=== PATIENT | male | born 1935 | race American Indian/Alaskan Native ===

== ENCOUNTER 2016-12-07 10:25 | Outpatient (CLI) | payer MEDICARE ==
--- NOTE | 2016-12-09 15:55 | Vascular Lab Report ---
LOWER EXTREMITY ARTERIAL DUPLEX: REASON FOR EXAM: Peripheral arterial disease. COMMENTS ON THE RIGHT: Monophasic waveforms are seen proximally. Monophasic waveforms are seen distally. There is a significant increase in velocities in the mid superficial femoral artery compatible with at least a 50% narrowing or greater. Multifocal moderate plaques are noted. Findings are consistent with abnormal perfusion with monophasic flow through the entire right lower extremity. Findings are compatible with compromised ability to heal distal wounds. COMMENTS ON THE LEFT: Monophasic waveforms are seen proximally in the external iliac artery, and then triphasic waveforms are seen in the common femoral artery with biphasic waveforms in the proximal superficial femoral artery. Monophasic waveforms are seen in the mid superficial femoral artery and below. Monophasic waveforms are seen distally. There is a significant decline in velocities from the proximal superficial femoral artery to the mid superficial femoral artery suggestive of a significant narrowing. Multifocal moderate plaques are noted. Findings are consistent with abnormal perfusion. Findings are compatible with compromised ability to heal distal wounds. IMPRESSION: RIGHT: Waveforms compatible with stenotic/occlusive aortoiliac disease and at least right stenotic/occlusive superficial femoral artery arterial disease. LEFT:Waveforms compatible with stenotic/occlusive aortoiliac disease and at least left stenotic/occlusive superficial femoral artery disease.
== END 2016-12-07 10:26 | disposition home or self-care (01) ==
LOC: VAS 10:25
PROVIDERS: ATTEND Internal Medicine
DX: I73.9 Peripheral vascular disease, unspecified (principal)
CPT/HCPCS: 93925

== ENCOUNTER 2017-11-18 14:10 | Inpatient (IN) | payer MEDICARE ==
[2017-11-18 15:45] LABS: Basophils # (Auto) 0.1 K/mm3 (0.0-0.1); Eosinophils # (Auto) 0.1 K/mm3 (0.0-0.4); Eosinophils % (Auto) 1.9 % (0.0-4.3); Hematocrit 32.4 % (35.5-45.6); Hemoglobin 10.5 gm/dl (11.8-15.2); Lymphocytes # (Auto) 1.5 K/mm3 (1.2-5.4); Lymphocytes % (Auto) 22.2 % (13.4-35.0); Mean Corpuscular HGB Conc 33 % (32-34); Mean Corpuscular Hemoglobin 29 pg (28-32); Mean Corpuscular Volume 89 fl (84-94); Monocytes # (Auto) 0.4 K/mm3 (0.0-0.8); Monocytes % (Auto) 5.9 % (0.0-7.3); Platelet Count 250 K/mm3 (140-440); Red Blood Count 3.66 M/mm3 (3.65-5.03); Red Cell Distribution Width 17.3 % (13.2-15.2)
[2017-11-18 15:59] LABS: Alanine Aminotransferase 7 units/L (7-56); Albumin 3.1 g/dL (3.9-5); BUN/Creatinine Ratio 15; Blood Urea Nitrogen 18 mg/dL (9-20); Calcium 8.4 mg/dL (8.4-10.2); Hemolysis Index 10
--- NOTE | 2017-11-18 15:59 | Emergency Department Report ---
ED Altered Mental Status HPI - General Chief Complaint: Altered Mental Status Stated Complaint: CHEST PAIN Time Seen by Provider: 11/18/17 15:51 Source: EMS Mode of arrival: Ambulatory Limitations: No Limitations - History of Present Illness MD Complaint: altered mental status -: This morning Severity: moderate Consistency of Symptoms: waxing and waning Context: unknown Associated Symptoms: denies other symptoms - Related Data Home Medications Medication Instructions Recorded Confirmed Last Taken Diltiazem HCl [Diltiazem ER] 120 mg PO DAILY 11/18/17 11/18/17 Unknown Tamsulosin [Flomax] 0.4 mg PO QDAY 11/18/17 11/18/17 Unknown Allergies Allergy/AdvReac Type Severity Reaction Status Date / Time No Known Allergies Allergy Unverified 12/07/16 10:26 ED Review of Systems ROS: Stated complaint: CHEST PAIN Other details as noted in HPI Comment: All other systems reviewed and negative Constitutional: weakness. denies: chills, diaphoresis, fever Eyes: denies: eye pain, vision change ENT: denies: ear pain, hearing loss Respiratory: denies: cough, shortness of breath Cardiovascular: denies: chest pain, palpitations Endocrine: no symptoms reported Gastrointestinal: denies: abdominal pain, nausea, vomiting, diarrhea Genitourinary: denies: urgency, dysuria, frequency, hematuria Musculoskeletal: denies: back pain, joint swelling Skin: denies: rash, change in color Neurological: weakness, numbness. denies: headache Psychiatric: denies: auditory hallucinations Hematological/Lymphatic: denies: easy bleeding, easy bruising ED Past Medical Hx - Past Medical History Previous Medical History?: Yes Hx Hypertension: Yes Hx CVA: Yes Hx Heart Attack/AMI: No Hx Congestive Heart Failure: No Hx Diabetes: No Hx Deep Vein Thrombosis: No Hx Pulmonary Embolism: No Hx GERD: No Hx Liver Disease: No Hx Renal Disease: No Hx of Cancer: No Hx Sickle Cell Disease: No Hx Arthritis: No Hx Headaches / Migraines: No Hx Seizures: No Hx Kidney Stones: No Hx Psychiatric Treatment: No Hx Asthma: No Hx COPD: No Hx Tuberculosis: No Hx Dementia: No Hx HIV: No - Surgical History Past Surgical History?: No Hx Coronary Stent: No Hx Open Heart Surgery: No Hx Pacemaker: No Hx Internal Defibrillator: No Hx Cholecystectomy: No Hx Appendectomy: No Hx Breast Surgery: No - Social History Smoking Status: Current Every Day Smoker Substance Use Type: None - Medications Home Medications: Home Medications Medication Instructions Recorded Confirmed Last Taken Type Diltiazem HCl [Diltiazem ER] 120 mg PO DAILY 11/18/17 11/18/17 Unknown History Tamsulosin [Flomax] 0.4 mg PO QDAY 11/18/17 11/18/17 Unknown History ED Physical Exam - General Limitations: No Limitations General appearance: alert, in no apparent distress - Head Head exam: Present: atraumatic, normocephalic, normal inspection - Eye Eye exam: Present: normal appearance, PERRL, EOMI Pupils: Absent: normal accommodation, unequal - ENT ENT exam: Present: normal exam, normal orophraynx, mucous membranes moist - Neck Neck exam: Present: normal inspection, full ROM - Respiratory Respiratory exam: Present: normal lung sounds bilaterally. Absent: respiratory distress, wheezes, rales, rhonchi - Cardiovascular Cardiovascular Exam: Present: bradycardia, normal heart sounds - GI/Abdominal GI/Abdominal exam: Present: soft, normal bowel sounds. Absent: tenderness, guarding, rebound - Extremities Exam Extremities exam: Present: normal inspection, full ROM, normal capillary refill - Back Exam Back exam: Present: normal inspection, full ROM - Neurological Exam Neurological exam: Present: alert, oriented X3, CN II-XII intact - Psychiatric Psychiatric exam: Present: normal affect, anxious, flat affect - Skin Skin exam: Present: warm, dry, intact, normal color - Assessment Assessment Interval: Baseline - Level of Consciousness 1a. Level of Consciousness: alert - LOC Questions 1b. LOC Questions: answers correctly - LOC Command 1c. LOC Commands: performs tasks correctly - Best Gaze 2. Best Gaze: normal - Visual 3. Visual: no visual loss - Facial Palsy 4. Facial Palsy: normal symmetrical movement - Motor Arm 5b. Motor Arm Right: no drift 5a. Motor Arm Left: no drift - Motor Leg 6a. Motor Leg Left: no drift 6b. Motor Leg Right: no drift - Limb Ataxia 7. Limb Ataxia: absent - Sensory 8. Sensory: normal - Best Language 9. Best Language: no aphasia - Dysarthria 10. Dysarthria: normal - Extinction and Inattention 11. Extinction/Inattention: no abnormality - Scoring Total Score: 0 Stroke Severity: No Stroke Symptoms ED Course Vital Signs 11/18/17 11/18/17 11/18/17 15:14 15:23 15:45 Temperature 97.8 F Pulse Rate 54 L 42 L 44 L Respiratory 18 16 16 Rate Blood Pressure 159/39 Blood Pressure 159/39 142/50 152/50 [Right] O2 Sat by Pulse 100 97 96 Oximetry 11/18/17 11/18/17 17:30 19:31 Temperature 98.3 F Pulse Rate 54 L 57 L Respiratory 16 18 Rate Blood Pressure Blood Pressure 158/52 158/52 [Right] O2 Sat by Pulse 96 99 Oximetry - Reevaluation(s) Reevaluation #1: 11/18/17 20:07 I discussed the patient care with the hospitalist on-call Dr Magallanes. He will admit patient to the hospital for further evaluation and management. - Lab Data Result diagrams: 11/18/17 16:11 11/18/17 15:30 Lab Results 11/18/17 11/18/17 11/18/17 Range/Units 15:30 15:30 15:30 WBC 6.5 (4.5-11.0) K/mm3 RBC 3.66 (3.65-5.03) M/mm3 Hgb 10.5 L (11.8-15.2) gm/dl Hct 32.4 L (35.5-45.6) % MCV 89 (84-94) fl MCH 29 (28-32) pg MCHC 33 (32-34) % RDW 17.3 H (13.2-15.2) % Plt Count 250 (140-440) K/mm3 Lymph % (Auto) 22.2 (13.4-35.0) % [place] % (Auto) 5.9 (0.0-7.3) % Eos % (Auto) 1.9 (0.0-4.3) % Baso % (Auto) 1.0 (0.0-1.8) % Lymph # 1.5 (1.2-5.4) K/mm3 [place] # 0.4 (0.0-0.8) K/mm3 Eos # 0.1 (0.0-0.4) K/mm3 Baso # 0.1 (0.0-0.1) K/mm3 Seg Neutrophils % 69.0 (40.0-70.0) % Seg Neutrophils # 4.5 (1.8-7.7) K/mm3 PT (12.2-14.9) Sec. INR (0.87-1.13) APTT (24.2-36.6) Sec. Sodium 136 L (137-145) mmol/L Potassium 4.3 (3.6-5.0) mmol/L Chloride 101.6 (98-107) mmol/L Carbon Dioxide 21 L (22-30) mmol/L Anion Gap 18 mmol/L BUN 18 (9-20) mg/dL Creatinine 1.2 (0.8-1.5) mg/dL Estimated GFR > 60 ml/min BUN/Creatinine Ratio 15 % Glucose 79 (75-100) mg/dL Lactic Acid (0.7-2.0) mmol/L Calcium 8.4 (8.4-10.2) mg/dL Total Bilirubin 0.20 (0.1-1.2) mg/dL AST 18 (5-40) units/L ALT 7 (7-56) units/L Alkaline Phosphatase 77 (35-129) units/L Ammonia (25-60) umol/L Total Creatine Kinase (55-170) units/L Troponin T (0.00-0.029) ng/mL Total Protein 7.0 (6.3-8.2) g/dL Albumin 3.1 L (3.9-5) g/dL Albumin/Globulin Ratio 0.8 % TSH 8.340 H (0.270-4.200) mlU/mL Urine Color (Yellow) Urine Turbidity (Clear) Urine pH (5.0-7.0) Ur Specific [place] (1.003-1.030) Urine Protein (Negative) mg/dL Urine Glucose (UA) (Negative) mg/dL Urine Ketones (Negative) mg/dL Urine Blood (Negative) Urine Nitrite (Negative) Urine Bilirubin (Negative) Urine Urobilinogen (<2.0) mg/dL Ur Leukocyte Esterase (Negative) Urine WBC (Auto) (0.0-6.0) /HPF Urine RBC (Auto) (0.0-6.0) /HPF Hyaline Casts /LPF Urine Mucus /HPF Urine Opiates Screen Urine Methadone Screen Ur Barbiturates Screen Ur Phencyclidine Scrn Ur Amphetamines Screen U Benzodiazepines Scrn Urine Cocaine Screen U Marijuana (THC) Screen Drugs of Abuse Note Plasma/Serum Alcohol (0-0.07) % 11/18/17 11/18/17 11/18/17 Range/Units 15:30 16:11 16:11 WBC 7.6 (4.5-11.0) K/mm3 RBC 3.48 L (3.65-5.03) M/mm3 Hgb 10.0 L (11.8-15.2) gm/dl Hct 30.3 L (35.5-45.6) % MCV 87 (84-94) fl MCH 29 (28-32) pg MCHC 33 (32-34) % RDW 16.7 H (13.2-15.2) % Plt Count 241 (140-440) K/mm3 Lymph % (Auto) 21.4 (13.4-35.0) % [place] % (Auto) 6.8 (0.0-7.3) % Eos % (Auto) 1.6 (0.0-4.3) % Baso % (Auto) 0.5 (0.0-1.8) % Lymph # 1.6 (1.2-5.4) K/mm3 [place] # 0.5 (0.0-0.8) K/mm3 Eos # 0.1 (0.0-0.4) K/mm3 Baso # 0.0 (0.0-0.1) K/mm3 Seg Neutrophils % 69.7 (40.0-70.0) % Seg Neutrophils # 5.3 (1.8-7.7) K/mm3 PT 12.7 (12.2-14.9) Sec. INR 0.91 (0.87-1.13) APTT 35.9 (24.2-36.6) Sec. Sodium (137-145) mmol/L Potassium (3.6-5.0) mmol/L Chloride (98-107) mmol/L Carbon Dioxide (22-30) mmol/L Anion Gap mmol/L BUN (9-20) mg/dL Creatinine (0.8-1.5) mg/dL Estimated GFR ml/min BUN/Creatinine Ratio % Glucose (75-100) mg/dL Lactic Acid (0.7-2.0) mmol/L Calcium (8.4-10.2) mg/dL Total Bilirubin (0.1-1.2) mg/dL AST (5-40) units/L ALT (7-56) units/L Alkaline Phosphatase (35-129) units/L Ammonia (25-60) umol/L Total Creatine Kinase (55-170) units/L Troponin T (0.00-0.029) ng/mL Total Protein (6.3-8.2) g/dL Albumin (3.9-5) g/dL Albumin/Globulin Ratio % TSH (0.270-4.200) mlU/mL Urine Color (Yellow) Urine Turbidity (Clear) Urine pH (5.0-7.0) Ur Specific [place] (1.003-1.030) Urine Protein (Negative) mg/dL Urine Glucose (UA) (Negative) mg/dL Urine Ketones (Negative) mg/dL Urine Blood (Negative) Urine Nitrite (Negative) Urine Bilirubin (Negative) Urine Urobilinogen (<2.0) mg/dL Ur Leukocyte Esterase (Negative) Urine WBC (Auto) (0.0-6.0) /HPF Urine RBC (Auto) (0.0-6.0) /HPF Hyaline Casts /LPF Urine Mucus /HPF Urine Opiates Screen Urine Methadone Screen Ur Barbiturates Screen Ur Phencyclidine Scrn Ur Amphetamines Screen U Benzodiazepines Scrn Urine Cocaine Screen U Marijuana (THC) Screen Drugs of Abuse Note Plasma/Serum Alcohol < 0.01 (0-0.07) % 11/18/17 11/18/17 11/18/17 Range/Units 16:11 16:11 16:11 WBC (4.5-11.0) K/mm3 RBC (3.65-5.03) M/mm3 Hgb (11.8-15.2) gm/dl Hct (35.5-45.6) % MCV (84-94) fl MCH (28-32) pg MCHC (32-34) % RDW (13.2-15.2) % Plt Count (140-440) K/mm3 Lymph % (Auto) (13.4-35.0) % [place] % (Auto) (0.0-7.3) % Eos % (Auto) (0.0-4.3) % Baso % (Auto) (0.0-1.8) % Lymph # (1.2-5.4) K/mm3 [place] # (0.0-0.8) K/mm3 Eos # (0.0-0.4) K/mm3 Baso # (0.0-0.1) K/mm3 Seg Neutrophils % (40.0-70.0) % Seg Neutrophils # (1.8-7.7) K/mm3 PT (12.2-14.9) Sec. INR (0.87-1.13) APTT (24.2-36.6) Sec. Sodium (137-145) mmol/L Potassium (3.6-5.0) mmol/L Chloride (98-107) mmol/L Carbon Dioxide (22-30) mmol/L Anion Gap mmol/L BUN (9-20) mg/dL Creatinine (0.8-1.5) mg/dL Estimated GFR ml/min BUN/Creatinine Ratio % Glucose (75-100) mg/dL Lactic Acid 1.60 (0.7-2.0) mmol/L Calcium (8.4-10.2) mg/dL Total Bilirubin (0.1-1.2) mg/dL AST (5-40) units/L ALT (7-56) units/L Alkaline Phosphatase (35-129) units/L Ammonia 38.0 (25-60) umol/L Total Creatine Kinase (55-170) units/L Troponin T (0.00-0.029) ng/mL Total Protein (6.3-8.2) g/dL Albumin (3.9-5) g/dL Albumin/Globulin Ratio % TSH (0.270-4.200) mlU/mL Urine Color (Yellow) Urine Turbidity (Clear) Urine pH (5.0-7.0) Ur Specific [place] (1.003-1.030) Urine Protein (Negative) mg/dL Urine Glucose (UA) (Negative) mg/dL Urine Ketones (Negative) mg/dL Urine Blood (Negative) Urine Nitrite (Negative) Urine Bilirubin (Negative) Urine Urobilinogen (<2.0) mg/dL Ur Leukocyte Esterase (Negative) Urine WBC (Auto) (0.0-6.0) /HPF Urine RBC (Auto) (0.0-6.0) /HPF Hyaline Casts /LPF Urine Mucus /HPF Urine Opiates Screen Urine Methadone Screen Ur Barbiturates Screen Ur Phencyclidine Scrn Ur Amphetamines Screen U Benzodiazepines Scrn Urine Cocaine Screen U Marijuana (THC) Screen Drugs of Abuse Note Plasma/Serum Alcohol < 0.01 (0-0.07) % 11/18/17 11/18/17 11/18/17 Range/Units 16:11 Unknown Unknown WBC (4.5-11.0) K/mm3 RBC (3.65-5.03) M/mm3 Hgb (11.8-15.2) gm/dl Hct (35.5-45.6) % MCV (84-94) fl MCH (28-32) pg MCHC (32-34) % RDW (13.2-15.2) % Plt Count (140-440) K/mm3 Lymph % (Auto) (13.4-35.0) % [place] % (Auto) (0.0-7.3) % Eos % (Auto) (0.0-4.3) % Baso % (Auto) (0.0-1.8) % Lymph # (1.2-5.4) K/mm3 [place] # (0.0-0.8) K/mm3 Eos # (0.0-0.4) K/mm3 Baso # (0.0-0.1) K/mm3 Seg Neutrophils % (40.0-70.0) % Seg Neutrophils # (1.8-7.7) K/mm3 PT (12.2-14.9) Sec. INR (0.87-1.13) APTT (24.2-36.6) Sec. Sodium (137-145) mmol/L Potassium (3.6-5.0) mmol/L Chloride (98-107) mmol/L Carbon Dioxide (22-30) mmol/L Anion Gap mmol/L BUN (9-20) mg/dL Creatinine (0.8-1.5) mg/dL Estimated GFR ml/min BUN/Creatinine Ratio % Glucose (75-100) mg/dL Lactic Acid (0.7-2.0) mmol/L Calcium (8.4-10.2) mg/dL Total Bilirubin (0.1-1.2) mg/dL AST (5-40) units/L ALT (7-56) units/L Alkaline Phosphatase (35-129) units/L Ammonia (25-60) umol/L Total Creatine Kinase 51 L (55-170) units/L Troponin T < 0.010 (0.00-0.029) ng/mL Total Protein (6.3-8.2) g/dL Albumin (3.9-5) g/dL Albumin/Globulin Ratio % TSH (0.270-4.200) mlU/mL Urine Color Yellow (Yellow) Urine Turbidity Clear (Clear) Urine pH 5.0 (5.0-7.0) Ur Specific [place] 1.015 (1.003-1.030) Urine Protein 30 mg/dl (Negative) mg/dL Urine Glucose (UA) Neg (Negative) mg/dL Urine Ketones Neg (Negative) mg/dL Urine Blood Sm (Negative) Urine Nitrite Neg (Negative) Urine Bilirubin Neg (Negative) Urine Urobilinogen < 2.0 (<2.0) mg/dL Ur Leukocyte Esterase Neg (Negative) Urine WBC (Auto) 1.0 (0.0-6.0) /HPF Urine RBC (Auto) 4.0 (0.0-6.0) /HPF Hyaline Casts 1 /LPF Urine Mucus Few /HPF Urine Opiates Screen Presumptive negative Urine Methadone Screen Presumptive negative Ur Barbiturates Screen Presumptive negative Ur Phencyclidine Scrn Presumptive negative Ur Amphetamines Screen Presumptive negative U Benzodiazepines Scrn Presumptive negative Urine Cocaine Screen Presumptive negative U Marijuana (THC) Screen Presumptive negative Drugs of Abuse Note Disclamer Plasma/Serum Alcohol (0-0.07) % - EKG Data -: EKG Interpreted by Me Rate: bradycardia When compared to previous EKG there are: previous EKG unavailable Interpretation: nonspecific ST-T wave aniket, other (RBBB.) - Radiology Data Radiology results: report reviewed, image reviewed - Medical Decision Making TIA Critical care attestation.: If time is entered above; I have spent that time in minutes in the direct care of this critically ill patient, excluding procedure time. ED Disposition Clinical Impression: Hypothyroidism Qualifiers: Hypothyroidism type: unspecified Qualified Code(s): E03.9 - Hypothyroidism, unspecified TIA (transient ischemic attack) Qualifiers: Transient cerebral ischemia type: unspecified Qualified Code(s): G45.9 - Transient cerebral ischemic attack, unspecified Disposition: DC-09 OP ADMIT IP TO THIS HOSP Is pt being admited?: Yes Does the pt Need Aspirin: Yes Condition: Stable Referrals: ZOLTAN BRAUN MD [Primary Care Provider] - 3-5 Days
[2017-11-18 16:17] LABS: Bilirubin,Urine NEG (Negative); Blood,Urine SM (Negative); Color,Urine Yellow (Yellow); Hyaline Casts,Urine 1 /LPF; Mucus,Urine FEW /HPF; Urobilinogen,Urine < 2.0 mg/dL (<2.0)
[2017-11-18 16:23] LABS: Amphetamine Screen,Urine PRESUMPTIVE NEGATIVE; Benzodiazepines Screen,Urine PRESUMPTIVE NEGATIVE; Cannabinoid Screen,Urine PRESUMPTIVE NEGATIVE; Cocaine Screen,Urine PRESUMPTIVE NEGATIVE; Methadone Screen,Urine PRESUMPTIVE NEGATIVE; Opiate Screen,Urine PRESUMPTIVE NEGATIVE
[2017-11-18 16:31] LABS: Basophils % (Auto) 0.5 % (0.0-1.8); Eosinophils # (Auto) 0.1 K/mm3 (0.0-0.4); Eosinophils % (Auto) 1.6 % (0.0-4.3); Hematocrit 30.3 % (35.5-45.6); Lymphocytes # (Auto) 1.6 K/mm3 (1.2-5.4); Lymphocytes % (Auto) 21.4 % (13.4-35.0); Mean Corpuscular HGB Conc 33 % (32-34); Mean Corpuscular Hemoglobin 29 pg (28-32); Mean Corpuscular Volume 87 fl (84-94); Monocytes # (Auto) 0.5 K/mm3 (0.0-0.8); Monocytes % (Auto) 6.8 % (0.0-7.3); Platelet Count 241 K/mm3 (140-440); Red Blood Count 3.48 M/mm3 (3.65-5.03); Red Cell Distribution Width 16.7 % (13.2-15.2)
[2017-11-18 16:42] LABS: INR 0.91 (0.87-1.13)
[2017-11-18 16:43] LABS: Partial Thromboplastin Time 35.9 Sec. (24.2-36.6)
--- NOTE | 2017-11-18 17:53 | XRay Report ---
FINAL REPORT PROCEDURE: XR CHEST 1V AP TECHNIQUE: A portable AP chest radiograph was obtained at 11/18/2017 20:01 ([facility]) . CPT 60447 HISTORY: Altered mental status. COMPARISON: No prior studies are available for comparison. FINDINGS: Heart: Moderate cardiomegaly. Mediastinum/Vessels: Aortic tortuosity and calcification. Lungs/Pleural space: Hyperinflation. Elevation of the left diaphragm. Bony thorax: Mild osteopenia. Mild degenerative changes of the spine. Life support devices: None. IMPRESSION: Moderate cardiomegaly. Aortic calcification and tortuosity. Hyperinflation suggests obstructive physiology.
--- NOTE | 2017-11-18 19:08 | Cat Scan Report ---
FINAL REPORT PROCEDURE: CT HEAD/BRAIN WO CON TECHNIQUE: Computerized tomography of the head was performed without contrast material. DLP 805.42 mGy-cm. HISTORY: Altered mental status. COMPARISON: No prior studies are available for comparison. FINDINGS: Skull and scalp: Normal. Paranasal sinuses: Normal. Ventricles and subarachnoid spaces: Mild diffuse ventricular prominence. Cerebrum: No evidence of hemorrhage, acute infarction or mass. Atrophy. Moderate periventricular white matter low attenuation. More focal areas of low attenuation in the bilateral basal ganglia and the thalami, right greater than left. Area of low attenuation in the right thalamus measures 6.7 mm. Cerebellum and brainstem: No evidence of hemorrhage, acute infarction or mass. Vasculature: Atherosclerosis of the cavernous ICAs. Comments: [id number] C4-5 and moderate C5-6 disc space narrowing and osteophytes on stone unloader image. IMPRESSION: Atrophy. Ventricular prominence likely in proportion to the degree of atrophy. No CT evidence of acute intracranial hemorrhage. Moderate periventricular white matter low attenuation, likely chronic small vessel ischemic change. More focal areas of low attenuation in the basal ganglia and thalami likely lacunes. Consider MRI of the brain for further characterization if there is continued clinical concern for superimposed acute process and if patient has no contraindication to MRI.
[2017-11-18] MEDS ORDERED: DULCOLAX PR PRN (22:15)
[2017-11-18] MEDS ORDERED: PROVENTIL IH PRN (22:15)
[2017-11-18] MEDS ORDERED: ZOFRAN IV PRN (22:15)
[2017-11-18] MEDS ORDERED: SODIUM CHLORIDE FLUSH SYRINGE 10 ML IV PRN (22:15)
[2017-11-18] MEDS ORDERED: MILK OF MAGNESIA PO PRN (22:15)
[2017-11-18] MEDS ORDERED: APRESOLINE IV PRN (22:15)
[2017-11-18] MEDS ORDERED: TYLENOL PO PRN (22:15)
--- NOTE | 2017-11-18 22:18 | History and Physical Report ---
History of Present Illness Date of examination: 11/18/17 History of present illness: 82-year-old man with a history of hypertension stated that yesterday he lost his peripheral vision bilateral for 1 hour. Today he was trying to get out of the car and his legs were so weak he had difficulty walking. Triage sheet stating that the patient had a syncopal episode, the patient denies syncope Review of systems Constitutional: no weight loss, chills Ears, eyes, nose, mouth and throat: no nasal congestion, no nasal discharge, no sinus pressure, no vision change, no red eye. Neck: No neck pain or rigidity. Cardiovascular: no chest pain, palpitations Respiratory: No cough, shortness of breath Gastrointestinal: no abdominal pain, hematochezia Genitourinary : no dysuria, frequency , no hematuria Musculoskeletal: no joint swelling or muscle ache Integumentary: no rash, no pruritis Neurological: no parathesias, no numbness, no focal weakness Endocrine: no cold or heat intolerance, no polyuria or polydipsia Hematologic/Lymphatic: no easy bruising, no easy bleeding, no gland swelling Allergic/Immunologic: no urticaria, no angioedema. PAST MEDICAL HISTORY: Hypertension PAST SURGICAL HISTORY: None SOCIAL HISTORY: Smoke 1 pack a day, no alcohol, drugs FAMILY HISTORY: Hypertension Medications and Allergies Allergies Allergy/AdvReac Type Severity Reaction Status Date / Time No Known Allergies Allergy Verified 11/18/17 22:44 Home Medications Medication Instructions Recorded Confirmed Last Taken Type Diltiazem HCl [Diltiazem ER] 120 mg PO DAILY 11/18/17 11/18/17 Unknown History Tamsulosin [Flomax] 0.4 mg PO QDAY 11/18/17 11/18/17 Unknown History Exam - Physical Exam Narrative exam: Gen. appearance: Patient lying in bed, no apparent distress HEENT: Normocephalic, atraumatic, pupils equally round and reactive to light, extraocular movement intact, and no sclericterus,. No JVD or thyromegaly or nodule,neck supple, no carotid bruit ,mucous membranes moist, no exudate or erythema Heart: S1, S2, regular rate and rhythm Lungs: Clear to auscultation bilaterally, breathing comfortable Abdomen: Positive bowel sounds, nontender, nondistended, no organomegaly Extremity: No edema, cyanosis, clubbing Skin: No rash, nodules, warm, dry Neuro: Oriented 3, cranial nerves II-12 intact, speech is fluent, motor and sensory intact - Constitutional Vitals: Temp Pulse Resp BP Pulse Ox 98.3 F 57 L 18 158/52 99 11/18/17 19:31 11/18/17 19:31 11/18/17 19:31 11/18/17 19:31 11/18/17 19:31 Results - Labs CBC & Chem 7: 11/18/17 16:11 11/18/17 15:30 Labs: Abnormal lab results 11/18/17 11/18/17 11/18/17 Range/Units 15:30 15:30 15:30 RBC (3.65-5.03) M/mm3 Hgb 10.5 L (11.8-15.2) gm/dl Hct 32.4 L (35.5-45.6) % RDW 17.3 H (13.2-15.2) % Sodium 136 L (137-145) mmol/L Carbon Dioxide 21 L (22-30) mmol/L Total Creatine Kinase (55-170) units/L Albumin 3.1 L (3.9-5) g/dL TSH 8.340 H (0.270-4.200) mlU/mL 11/18/17 11/18/17 Range/Units 16:11 16:11 RBC 3.48 L (3.65-5.03) M/mm3 Hgb 10.0 L (11.8-15.2) gm/dl Hct 30.3 L (35.5-45.6) % RDW 16.7 H (13.2-15.2) % Sodium (137-145) mmol/L Carbon Dioxide (22-30) mmol/L Total Creatine Kinase 51 L (55-170) units/L Albumin (3.9-5) g/dL TSH (0.270-4.200) mlU/mL - Imaging and Cardiology EKG: image reviewed Chest x-ray: image reviewed CT Scan - head: report reviewed Assessment and Plan Assessment TIA Hypertension Plan Admit to medicine Obtain MRI of the head, carotid Doppler, echo Start aspirin, statin will consult neurology Consult physical, occupational therapy Neurochecks, swallow screen DVT prophylaxis
[2017-11-18 23:29] LABS: Creatine Kinase MB 1.1 ng/mL (0.0-4.0)
[2017-11-19 06:22] LABS: Creatine Kinase MB 1.2 ng/mL (0.0-4.0)
[2017-11-19 07:13] LABS: Chol/HDL Ratio 2.56 %
--- NOTE | 2017-11-19 09:57 | Progress Note ---
Assessment and Plan Assessment and plan: 82-year-old male with past medical history significant for hypertension presented to the emergency department for the complaints of loss of vision on out before presentation. In the emergency department CT of head was done and is negative for acute intracranial bleeding Loss of peripheral vision/acute CVA - CT head was done no acute intracranial hemorrhage, MRI showed lacunar infarcs , bilateral carotid Doppler showed 50-79% stenosis and vascular surgery consulted - Aspirin, statin - PT/OT, neurology consult Hypertension - Uncontrolled - We'll resume home medications DVT prophylaxis - Lovenox History Interval history: Patient was seen and evaluated this morning, patient didn't have any weakness. Hospitalist Physical - Physical exam Narrative exam: Not in cardiopulmonary distress. The patient appeared well nourished and normally developed. Vital signs as documented. Head exam is unremarkable. No scleral icterus . Neck is without jugular venous distension, thyromegaly, or carotid bruits. Lungs are clear to auscultation. Cardiac exam reveals regular rate and Rhythm. First and second heart sounds normal. No murmurs, rubs or gallops. Abdominal exam reveals normal bowel sounds, no masses, no organomegaly and no aortic enlargement. Extremities are nonedematous and both femoral and pedal pulses are normal. 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 No focal weakness. - Constitutional Vitals: Temp Pulse Resp BP Pulse Ox 97.9 F 76 20 167/56 99 11/19/17 05:50 11/19/17 05:50 11/19/17 05:50 11/19/17 05:50 11/19/17 05:50 Results - Labs CBC & Chem 7: 11/18/17 16:11 11/18/17 15:30 Labs: Laboratory Last Values WBC 7.6 K/mm3 (4.5-11.0) 11/18/17 16:11 RBC 3.48 M/mm3 (3.65-5.03) L 11/18/17 16:11 Hgb 10.0 gm/dl (11.8-15.2) L 11/18/17 16:11 Hct 30.3 % (35.5-45.6) L 11/18/17 16:11 MCV 87 fl (84-94) 11/18/17 16:11 MCH 29 pg (28-32) 11/18/17 16:11 MCHC 33 % (32-34) 11/18/17 16:11 RDW 16.7 % (13.2-15.2) H 11/18/17 16:11 Plt Count 241 K/mm3 (140-440) 11/18/17 16:11 Lymph % (Auto) 21.4 % (13.4-35.0) 11/18/17 16:11 [place] % (Auto) 6.8 % (0.0-7.3) 11/18/17 16:11 Eos % (Auto) 1.6 % (0.0-4.3) 11/18/17 16:11 Baso % (Auto) 0.5 % (0.0-1.8) 11/18/17 16:11 Lymph # 1.6 K/mm3 (1.2-5.4) 11/18/17 16:11 [place] # 0.5 K/mm3 (0.0-0.8) 11/18/17 16:11 Eos # 0.1 K/mm3 (0.0-0.4) 11/18/17 16:11 Baso # 0.0 K/mm3 (0.0-0.1) 11/18/17 16:11 Seg Neutrophils % 69.7 % (40.0-70.0) 11/18/17 16:11 Seg Neutrophils # 5.3 K/mm3 (1.8-7.7) 11/18/17 16:11 PT 12.7 Sec. (12.2-14.9) 11/18/17 16:11 INR 0.91 (0.87-1.13) 11/18/17 16:11 APTT 35.9 Sec. (24.2-36.6) 11/18/17 16:11 D-Dimer 1087.96 ng/mlDDU (0-234) H 11/19/17 05:50 Sodium 136 mmol/L (137-145) L 11/18/17 15:30 Potassium 4.3 mmol/L (3.6-5.0) 11/18/17 15:30 Chloride 101.6 mmol/L (98-107) 11/18/17 15:30 Carbon Dioxide 21 mmol/L (22-30) L 11/18/17 15:30 Anion Gap 18 mmol/L 11/18/17 15:30 BUN 18 mg/dL (9-20) 11/18/17 15:30 Creatinine 1.2 mg/dL (0.8-1.5) 11/18/17 15:30 Estimated GFR > 60 ml/min 11/18/17 15:30 BUN/Creatinine Ratio 15 % 11/18/17 15:30 Glucose 79 mg/dL (75-100) 11/18/17 15:30 Lactic Acid 1.60 mmol/L (0.7-2.0) 11/18/17 16:11 Calcium 8.4 mg/dL (8.4-10.2) 11/18/17 15:30 Total Bilirubin 0.20 mg/dL (0.1-1.2) 11/18/17 15:30 AST 18 units/L (5-40) 11/18/17 15:30 ALT 7 units/L (7-56) 11/18/17 15:30 Alkaline Phosphatase 77 units/L (35-129) 11/18/17 15:30 Ammonia 38.0 umol/L (25-60) 11/18/17 16:11 Total Creatine Kinase 50 units/L (55-170) L 11/19/17 05:22 CK-MB (CK-2) 1.2 ng/mL (0.0-4.0) 11/19/17 05:22 CK-MB (CK-2) Rel Index 2.4 (0-4) 11/19/17 05:22 Troponin T < 0.010 ng/mL (0.00-0.029) 11/19/17 05:22 Total Protein 7.0 g/dL (6.3-8.2) 11/18/17 15:30 Albumin 3.1 g/dL (3.9-5) L 11/18/17 15:30 Albumin/Globulin Ratio 0.8 % 11/18/17 15:30 Triglycerides 67 mg/dL (2-149) 11/19/17 05:22 Cholesterol 131 mg/dL (50-199) 11/19/17 05:22 LDL Cholesterol Direct 73 mg/dL (50-130) 11/19/17 05:22 HDL Cholesterol 51 mg/dL (40-59) 11/19/17 05:22 Cholesterol/HDL Ratio 2.56 % 11/19/17 05:22 TSH 8.340 mlU/mL (0.270-4.200) H 11/18/17 15:30 Urine Color Yellow (Yellow) 11/18/17 Unknown Urine Turbidity Clear (Clear) 11/18/17 Unknown Urine pH 5.0 (5.0-7.0) 11/18/17 Unknown Ur Specific [place] 1.015 (1.003-1.030) 11/18/17 Unknown Urine Protein 30 mg/dl mg/dL (Negative) 11/18/17 Unknown Urine Glucose (UA) Neg mg/dL (Negative) 11/18/17 Unknown Urine Ketones Neg mg/dL (Negative) 11/18/17 Unknown Urine Blood Sm (Negative) 11/18/17 Unknown Urine Nitrite Neg (Negative) 11/18/17 Unknown Urine Bilirubin Neg (Negative) 11/18/17 Unknown Urine Urobilinogen < 2.0 mg/dL (<2.0) 11/18/17 Unknown Ur Leukocyte Esterase Neg (Negative) 11/18/17 Unknown Urine WBC (Auto) 1.0 /HPF (0.0-6.0) 11/18/17 Unknown Urine RBC (Auto) 4.0 /HPF (0.0-6.0) 11/18/17 Unknown Hyaline Casts 1 /LPF 11/18/17 Unknown Urine Mucus Few /HPF 11/18/17 Unknown Urine Opiates Screen Presumptive negative 11/18/17 Unknown Urine Methadone Screen Presumptive negative 11/18/17 Unknown Ur Barbiturates Screen Presumptive negative 11/18/17 Unknown Ur Phencyclidine Scrn Presumptive negative 11/18/17 Unknown Ur Amphetamines Screen Presumptive negative 11/18/17 Unknown U Benzodiazepines Scrn Presumptive negative 11/18/17 Unknown Urine Cocaine Screen Presumptive negative 11/18/17 Unknown U Marijuana (THC) Screen Presumptive negative 11/18/17 Unknown Drugs of Abuse Note Disclamer 11/18/17 Unknown Plasma/Serum Alcohol < 0.01 % (0-0.07) 11/18/17 16:11
[2017-11-19] MEDS ORDERED: LOVENOX SUB-Q SCH (10:00)
--- NOTE | 2017-11-19 12:49 | Magnetic Resonance Report ---
MRI BRAIN WITHOUT CONTRAST INDICATION: Stroke. COMPARISON: Yesterday's head CT. FINDINGS: Noncontrast multiplanar and multisequence MRI of the brain again demonstrates mild to moderately enlarged ventricles, though overall age-appropriate. Extensive periventricular white matter FLAIR and T2 weighted hyperintensities. Few small lacunar infarcts as approximately 6 mm in the right basal ganglia and the thalamus, axial image 15, series 6. Symmetric sulci, fairly well preserved for the patient's age. No acute infarct, hemorrhage, mass effect or midline shift. No abnormal extra axial masses or fluid collections. Normal major intracranial vascular flow voids. Approximately 4 mm lacunar infarct in the boby on the right posterolaterally, axial image 10. A linear 5 mm peripheral right cerebellar lacunar infarct posterolaterally may also be noted, axial image 8. Otherwise unremarkable posterior fossa with symmetric seventh and eighth nerve complexes and preserved basilar cisterns. Unremarkable eye globes. Slight rightward nasal septal bowing. Approximately 8 mm left maxillary sinus mucous retention cyst inferiorly. Slight ethmoid sinusitis. Left frontal sinus may be aplastic/hypoplastic. Clear remainder aerated paranasal sinuses and mastoid air cells. Normal midline structures without evidence of Chiari malformation. C3-C4 degenerative changes. CONCLUSION: Age appropriate atrophy with extensive microvascular changes, few small lacunar infarcts and other incidental findings without evidence of acute infarction, as described. Please correlate. Thank you for the opportunity to participate in this patient's care.
--- NOTE | 2017-11-19 13:03 | Cat Scan Report ---
CTA CHEST INDICATION: Elevated d-dimer. COMPARISON: None similar. FINDINGS: Chest CTA performed following intravenous administration of 100 cc of Omnipaque 350. Rotational MIP's also obtained. Top normal heart size, slightly exaggerated due to slight pectus deformity. No effusions. No aortic aneurysm or definite dissection, though opacification suboptimal. Few atherosclerotic calcifications. No suspicious pulmonary arterial filling defects. No size significant adenopathy. Patent central airway. Normal visualized thyroid. Few biapical and upper lobe peripheral emphysematous bullae. Moderate biapical scarring/pleural thickening posteriorly with minimal calcifications as on axial image 12, series 2. Approximately 0.9 cm somewhat spiculated density more inferiorly in the peripheral left upper lobe as on axial image 60, series 3 may also represent scarring, but remains indeterminate for neoplasm on this exam alone. Slight bronchiectasis. Mild bibasilar scarring and few blebs/pneumatoceles as well. Approximately 1.3 cm focal pleural thickening with calcifications incidentally noted in the left upper lobe anteriorly at the level of the nipple, axial image 133, series 3. Mild nonspecific distal esophageal wall prominence/thickening, not excluded for gastroesophageal reflux and/or hiatal hernia, amongst others. No significant abnormality in the imaged upper abdomen. Multilevel spinal degenerative changes, greatest mid to lower thoracic with endplate irregularities and adjacent sclerosis, most pronounced at T9-T11 with lesser similar changes also seen at T6-T7. C7-T1 disc narrowing with spurring also noted. CONCLUSION: 1. No CT evidence of pulmonary embolism in this patient with underlying emphysematous changes and scattered scarring, as detailed above. An approximately 0.9 cm left upper lobe spiculated density however remains nonspecific for scarring versus a neoplasm on this exam alone. Direct comparison with prior chest imaging would be helpful, if available. Otherwise, short term CT followup or PET-CT may be considered for further characterization, as warranted. 2. Other findings, as above. Thank you for the opportunity to participate in this patient's care.
--- NOTE | 2017-11-19 13:41 | Consultation ---
History of Present Illness Consult date: 11/19/17 History of present illness: went over the MRI and there are acute small lacunar strokes and extensive small vessel disease likely expalins the syncope and visual loss medical therapy for TIA and stroke recommended Medications and Allergies Allergies Allergy/AdvReac Type Severity Reaction Status Date / Time No Known Allergies Allergy Verified 11/18/17 22:44 Home Medications Medication Instructions Recorded Confirmed Last Taken Type Diltiazem HCl [Diltiazem ER] 120 mg PO DAILY 11/18/17 11/18/17 Unknown History Tamsulosin [Flomax] 0.4 mg PO QDAY 11/18/17 11/18/17 Unknown History Active Meds: Active Medications Acetaminophen (Tylenol) 650 mg PO Q4H PRN PRN Reason: Pain, Mild (1-3) Albuterol (Proventil) 2.5 mg IH Q3HRT PRN PRN Reason: Shortness Of Breath Aspirin (Aspirin) 325 mg PO QDAY JANE Bisacodyl (Dulcolax) 10 mg [place] QDAY PRN PRN Reason: Constipation Enoxaparin Sodium (Lovenox) 40 mg SUB-Q QDAY@1000 JANE Hydralazine HCl (Apresoline) 5 mg IV Q6H PRN PRN Reason: Keep SBP between 160-185 mm Hg Magnesium Hydroxide (Milk Of Magnesia) 30 ml PO Q4H PRN PRN Reason: Constipation Ondansetron HCl (Zofran) 4 mg IV Q8H PRN PRN Reason: N/V unrelieved by Reglan Pravastatin Sodium (Pravachol) 20 mg PO QHS JANE Sodium Chloride (Sodium Chloride Flush Syringe 10 Ml) 10 ml IV PRN PRN PRN Reason: LINE FLUSH Physical Examination - Vital Signs Vital Signs: Vital Signs Temp Pulse Resp BP Pulse Ox 97.8 F 54 L 18 159/39 100 11/18/17 15:14 11/18/17 15:14 11/18/17 15:14 11/18/17 15:14 11/18/17 15:14 - Assessment Assessment Interval: Baseline - Level of Consciousness 1a. Level of Consciousness: alert - LOC Questions 1b. LOC Questions: answers correctly - LOC Command 1c. LOC Commands: performs tasks correctly - Best Gaze 2. Best Gaze: normal - Visual 3. Visual: no visual loss - Facial Palsy 4. Facial Palsy: normal symmetrical movement - Motor Arm 5b. Motor Arm Right: no drift - Motor Leg 6a. Motor Leg Left: no drift - Limb Ataxia 7. Limb Ataxia: absent - Sensory 8. Sensory: normal - Best Language 9. Best Language: no aphasia - Dysarthria 10. Dysarthria: normal - Extinction and Inattention 11. Extinction/Inattention: no abnormality Results - Laboratory Findings CBC and BMP: 11/18/17 16:11 11/18/17 15:30 Abnormal Lab Findings: Abnormal Labs 11/18/17 11/18/17 11/18/17 15:30 15:30 15:30 RBC Hgb 10.5 L Hct 32.4 L RDW 17.3 H D-Dimer Sodium 136 L Carbon Dioxide 21 L Total Creatine Kinase Albumin 3.1 L TSH 8.340 H 11/18/17 11/18/17 11/18/17 16:11 16:11 22:56 RBC 3.48 L Hgb 10.0 L Hct 30.3 L RDW 16.7 H D-Dimer Sodium Carbon Dioxide Total Creatine Kinase 51 L 50 L Albumin TSH 11/19/17 11/19/17 05:22 05:50 RBC Hgb Hct RDW D-Dimer 1087.96 H Sodium Carbon Dioxide Total Creatine Kinase 50 L Albumin TSH
[2017-11-19] MEDS ORDERED: DILTIAZEM HCL 120 MG PO SCH (15:45)
[2017-11-19] MEDS: ASPIRIN PO SCH (15:56)
[2017-11-19] MEDS: LOVENOX SUB-Q SCH (15:56)
[2017-11-19] MEDS: FLOMAX PO SCH (16:06)
[2017-11-19] MEDS: CARDIZEM CD PO SCH (21:47)
[2017-11-19] MEDS: PRAVACHOL PO SCH (21:47)
[2017-11-20] MEDS: ASPIRIN PO SCH (11:16)
[2017-11-20] MEDS: CARDIZEM CD PO SCH (11:16)
[2017-11-20] MEDS: LOVENOX SUB-Q SCH (11:16)
[2017-11-20] MEDS: FLOMAX PO SCH (11:17)
--- NOTE | 2017-11-20 12:08 | Progress Note ---
Subjective Date of service: 11/20/17 Interval history: see my note about TIA/ Ischemic stroke dx suspect this is cause of syncope Objective - Laboratory Findings CBC and BMP: 11/18/17 16:11 11/18/17 15:30 Abnormal Lab Findings: Abnormal Labs 11/18/17 11/18/17 11/18/17 15:30 15:30 15:30 RBC Hgb 10.5 L Hct 32.4 L RDW 17.3 H D-Dimer Sodium 136 L Carbon Dioxide 21 L Total Creatine Kinase Albumin 3.1 L TSH 8.340 H 11/18/17 11/18/17 11/18/17 16:11 16:11 22:56 RBC 3.48 L Hgb 10.0 L Hct 30.3 L RDW 16.7 H D-Dimer Sodium Carbon Dioxide Total Creatine Kinase 51 L 50 L Albumin TSH 11/19/17 11/19/17 05:22 05:50 RBC Hgb Hct RDW D-Dimer 1087.96 H Sodium Carbon Dioxide Total Creatine Kinase 50 L Albumin TSH
--- NOTE | 2017-11-20 15:33 | Consultation ---
History of Present Illness - Reason for Consult Consult date: 11/20/17 LAZARO - History of Present Illness 82-year-old male with past medical history of peripheral vascular disease, hypertension, tobacco abuse, and stroke 10 years ago who presents to the emergency room due to presyncopal and syncopal events. The patient reports that he had been walking from his car to a facility a few days ago he had a presyncopal event where he had tunnel vision with loss of peripheral vision that lasted for 2 hours as well as diaphoresis and fatigue with exertion. Patient did not have monocular visual loss. Most recently, he was walking from his car to the same facility when he had diaphoresis and fatigue with exertion and had a syncopal event while laying his head down on table. EMS was then called and brought him to [facility]. The patient reports that he has been having diaphoresis and fatigue with exertion for at least 6 months. He is a long-term smoker. His peripheral vascular disease was previously treated by Dr. Valadez, but this has not helped his baseline ambulation much because although his right-sided claudication has resolved, his left-sided claudication persists and his claudication is unrelated to his diaphoresis and fatigue with exertion. MRI was performed showing no acute infarct. There were old lacunar infarcts and sequelae of chronic small vessel disease. Carotid Doppler demonstrated 50- 79% stenosis of the right side, and severely elevated left carotid velocities which may represent 50-79% or greater than 79% stenosis On physical examination, no weakness in any extremity, no numbness in any extremity, no facial droop, no aphasia. Palpable right pedal pulse, nonpalpable left pedal pulse. Past History Past Medical History: COPD, hypertension, PVD, stroke Past Surgical History: No surgical history Social history: smoking. denies: IV drug use Family history: hypertension Medications and Allergies Allergies Allergy/AdvReac Type Severity Reaction Status Date / Time No Known Allergies Allergy Verified 11/18/17 22:44 Home Medications Medication Instructions Recorded Confirmed Last Taken Type Diltiazem HCl [Diltiazem ER] 120 mg PO DAILY 11/18/17 11/18/17 Unknown History Tamsulosin [Flomax] 0.4 mg PO QDAY 11/18/17 11/18/17 Unknown History Active Meds: Active Medications Acetaminophen (Tylenol) 650 mg PO Q4H PRN PRN Reason: Pain, Mild (1-3) Albuterol (Proventil) 2.5 mg IH Q3HRT PRN PRN Reason: Shortness Of Breath Aspirin (Aspirin) 325 mg PO QDAY [facility] Last Admin: 11/20/17 11:16 Dose: 325 mg Bisacodyl (Dulcolax) 10 mg [place] QDAY PRN PRN Reason: Constipation Diltiazem HCl (Cardizem Cd) 120 mg PO QDAY [facility] Last Admin: 11/20/17 11:16 Dose: 120 mg Enoxaparin Sodium (Lovenox) 40 mg SUB-Q QDAY@1000 [facility] Last Admin: 11/20/17 11:16 Dose: 40 mg Hydralazine HCl (Apresoline) 5 mg IV Q6H PRN PRN Reason: Keep SBP between 160-185 mm Hg Magnesium Hydroxide (Milk Of Magnesia) 30 ml PO Q4H PRN PRN Reason: Constipation Ondansetron HCl (Zofran) 4 mg IV Q8H PRN PRN Reason: N/V unrelieved by Reglan Pravastatin Sodium (Pravachol) 20 mg PO QHS [facility] Last Admin: 11/19/17 21:47 Dose: 20 mg Sodium Chloride (Sodium Chloride Flush Syringe 10 Ml) 10 ml IV PRN PRN PRN Reason: LINE FLUSH Tamsulosin HCl (Flomax) 0.4 mg PO QDAY [facility] Last Admin: 11/20/17 11:17 Dose: 0.4 mg Review of Systems All systems: negative (PVD, syncopal/presyncopal events) Exam - Constitutional Vitals: Temp Pulse Resp BP Pulse Ox 98.1 F 64 14 165/63 100 11/19/17 17:12 11/19/17 17:12 11/19/17 17:12 11/19/17 17:12 11/19/17 23:03 General appearance: Present: no acute distress - EENT Eyes: Present: EOM intact ENT: hearing intact - Neck Neck: Present: supple - Respiratory Respiratory effort: normal - Extremities Extremities: normal temperature, normal color Peripheral Pulses: abnormal (right pedal palpable, left pedal nonpalpable) - Psychiatric Psychiatric: appropriate mood/affect, cooperative - Neurologic Neurologic: moves all extremities Results - Labs CBC & Chem 7: 11/18/17 16:11 11/18/17 15:30 Assessment and Plan 82-year-old male with multiple medical issues who presented to the hospital with presyncopal and syncopal events with MRI demonstrating no acute infarct, but old lacunar infarcts and chronic small vessel disease, and ultrasound demonstrating 50-79% narrowing in the right internal carotid artery, with possibly 50-79% narrowing or greater than 79% narrowing in the left internal carotid artery. Patient will need a CT angiogram of the neck to assess his carotid artery disease. His events sound syncopal and presyncopal in nature without focal neurologic signs. Neurology thinks these may represent TIAs. Further recommendations after CT angiography. Patient reports having severe diaphoresis and fatigue when walking half a block for at least the last 6 months. May benefit from cardiology evaluation to exclude atypical angina.
[2017-11-20 16:24] LABS: BUN/Creatinine Ratio 20; Blood Urea Nitrogen 22 mg/dL (9-20); Calcium 8.4 mg/dL (8.4-10.2); Hemolysis Index 13
--- NOTE | 2017-11-20 16:27 | Progress Note ---
Assessment and Plan Assessment and plan: 82-year-old male with past medical history significant for hypertension presented to the emergency department for the complaints of loss of vision on out before presentation. In the emergency department CT of head was done and is negative for acute intracranial bleeding Loss of peripheral vision/acute CVA - CT head was done no acute intracranial hemorrhage, MRI showed lacunar infarcs , bilateral carotid Doppler showed 50-79% stenosis and vascular surgery consulted - Bypass surgery, and CT angiogram of the neck - Aspirin, statin - PT/OT, neurology consult Hypertension - Uncontrolled - We'll resume home medications Patient has dyspnea on exertion, due to diastolic dysfunction - Echo showed ejection fraction of 50-55% with diastolic dysfunction - Cardiology consulted DVT prophylaxis - Lovenox History Interval history: Patient was seen and evaluated this morning, patient didn't have any weakness. Hospitalist Physical - Physical exam Narrative exam: Not in cardiopulmonary distress. The patient appeared well nourished and normally developed. Vital signs as documented. Head exam is unremarkable. No scleral icterus . Neck is without jugular venous distension, thyromegaly, or carotid bruits. Lungs are clear to auscultation. Cardiac exam reveals regular rate and Rhythm. First and second heart sounds normal. No murmurs, rubs or gallops. Abdominal exam reveals normal bowel sounds, no masses, no organomegaly and no aortic enlargement. Extremities are nonedematous and both femoral and pedal pulses are normal. 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 No focal weakness. - Constitutional Vitals: Temp Pulse Resp BP Pulse Ox 98.1 F 64 14 165/63 100 11/19/17 17:12 11/19/17 17:12 11/19/17 17:12 11/19/17 17:12 11/19/17 23:03 General appearance: Present: no acute distress Results - Labs CBC & Chem 7: 11/18/17 16:11 11/20/17 15:44 Labs: Laboratory Last Values WBC 7.6 K/mm3 (4.5-11.0) 11/18/17 16:11 RBC 3.48 M/mm3 (3.65-5.03) L 11/18/17 16:11 Hgb 10.0 gm/dl (11.8-15.2) L 11/18/17 16:11 Hct 30.3 % (35.5-45.6) L 11/18/17 16:11 MCV 87 fl (84-94) 11/18/17 16:11 MCH 29 pg (28-32) 11/18/17 16:11 MCHC 33 % (32-34) 11/18/17 16:11 RDW 16.7 % (13.2-15.2) H 11/18/17 16:11 Plt Count 241 K/mm3 (140-440) 11/18/17 16:11 Lymph % (Auto) 21.4 % (13.4-35.0) 11/18/17 16:11 [place] % (Auto) 6.8 % (0.0-7.3) 11/18/17 16:11 Eos % (Auto) 1.6 % (0.0-4.3) 11/18/17 16:11 Baso % (Auto) 0.5 % (0.0-1.8) 11/18/17 16:11 Lymph # 1.6 K/mm3 (1.2-5.4) 11/18/17 16:11 [place] # 0.5 K/mm3 (0.0-0.8) 11/18/17 16:11 Eos # 0.1 K/mm3 (0.0-0.4) 11/18/17 16:11 Baso # 0.0 K/mm3 (0.0-0.1) 11/18/17 16:11 Seg Neutrophils % 69.7 % (40.0-70.0) 11/18/17 16:11 Seg Neutrophils # 5.3 K/mm3 (1.8-7.7) 11/18/17 16:11 PT 12.7 Sec. (12.2-14.9) 11/18/17 16:11 INR 0.91 (0.87-1.13) 11/18/17 16:11 APTT 35.9 Sec. (24.2-36.6) 11/18/17 16:11 D-Dimer 1087.96 ng/mlDDU (0-234) H 11/19/17 05:50 Sodium 136 mmol/L (137-145) L 11/20/17 15:44 Potassium 4.7 mmol/L (3.6-5.0) 11/20/17 15:44 Chloride 99.8 mmol/L (98-107) 11/20/17 15:44 Carbon Dioxide 24 mmol/L (22-30) 11/20/17 15:44 Anion Gap 17 mmol/L 11/20/17 15:44 BUN 22 mg/dL (9-20) H 11/20/17 15:44 Creatinine 1.1 mg/dL (0.8-1.5) 11/20/17 15:44 Estimated GFR > 60 ml/min 11/20/17 15:44 BUN/Creatinine Ratio 20 % 11/20/17 15:44 Glucose 81 mg/dL (75-100) 11/20/17 15:44 POC Glucose 103 (70-105) 11/19/17 22:01 Lactic Acid 1.60 mmol/L (0.7-2.0) 11/18/17 16:11 Calcium 8.4 mg/dL (8.4-10.2) 11/20/17 15:44 Total Bilirubin 0.20 mg/dL (0.1-1.2) 11/18/17 15:30 AST 18 units/L (5-40) 11/18/17 15:30 ALT 7 units/L (7-56) 11/18/17 15:30 Alkaline Phosphatase 77 units/L (35-129) 11/18/17 15:30 Ammonia 38.0 umol/L (25-60) 11/18/17 16:11 Total Creatine Kinase 50 units/L (55-170) L 11/19/17 05:22 CK-MB (CK-2) 1.2 ng/mL (0.0-4.0) 11/19/17 05:22 CK-MB (CK-2) Rel Index 2.4 (0-4) 11/19/17 05:22 Troponin T < 0.010 ng/mL (0.00-0.029) 11/19/17 05:22 Total Protein 7.0 g/dL (6.3-8.2) 11/18/17 15:30 Albumin 3.1 g/dL (3.9-5) L 11/18/17 15:30 Albumin/Globulin Ratio 0.8 % 11/18/17 15:30 Triglycerides 67 mg/dL (2-149) 11/19/17 05:22 Cholesterol 131 mg/dL (50-199) 11/19/17 05:22 LDL Cholesterol Direct 73 mg/dL (50-130) 11/19/17 05:22 HDL Cholesterol 51 mg/dL (40-59) 11/19/17 05:22 Cholesterol/HDL Ratio 2.56 % 11/19/17 05:22 TSH 8.340 mlU/mL (0.270-4.200) H 11/18/17 15:30 Urine Color Yellow (Yellow) 11/18/17 Unknown Urine Turbidity Clear (Clear) 11/18/17 Unknown Urine pH 5.0 (5.0-7.0) 11/18/17 Unknown Ur Specific [place] 1.015 (1.003-1.030) 11/18/17 Unknown Urine Protein 30 mg/dl mg/dL (Negative) 11/18/17 Unknown Urine Glucose (UA) Neg mg/dL (Negative) 11/18/17 Unknown Urine Ketones Neg mg/dL (Negative) 11/18/17 Unknown Urine Blood Sm (Negative) 11/18/17 Unknown Urine Nitrite Neg (Negative) 11/18/17 Unknown Urine Bilirubin Neg (Negative) 11/18/17 Unknown Urine Urobilinogen < 2.0 mg/dL (<2.0) 11/18/17 Unknown Ur Leukocyte Esterase Neg (Negative) 11/18/17 Unknown Urine WBC (Auto) 1.0 /HPF (0.0-6.0) 11/18/17 Unknown Urine RBC (Auto) 4.0 /HPF (0.0-6.0) 11/18/17 Unknown Hyaline Casts 1 /LPF 11/18/17 Unknown Urine Mucus Few /HPF 11/18/17 Unknown Urine Opiates Screen Presumptive negative 11/18/17 Unknown Urine Methadone Screen Presumptive negative 11/18/17 Unknown Ur Barbiturates Screen Presumptive negative 11/18/17 Unknown Ur Phencyclidine Scrn Presumptive negative 11/18/17 Unknown Ur Amphetamines Screen Presumptive negative 11/18/17 Unknown U Benzodiazepines Scrn Presumptive negative 11/18/17 Unknown Urine Cocaine Screen Presumptive negative 11/18/17 Unknown U Marijuana (THC) Screen Presumptive negative 11/18/17 Unknown Drugs of Abuse Note Disclamer 11/18/17 Unknown Plasma/Serum Alcohol < 0.01 % (0-0.07) 11/18/17 16:11
[2017-11-20] MEDS: PRAVACHOL PO SCH (21:32)
[2017-11-21] MEDS: LOVENOX SUB-Q SCH (09:17)
[2017-11-21] MEDS: ASPIRIN PO SCH (09:18)
[2017-11-21] MEDS: CARDIZEM CD PO SCH (09:19)
[2017-11-21] MEDS: FLOMAX PO SCH (09:20)
--- NOTE | 2017-11-21 10:55 | Event Note ---
Date: 11/21/17 Pt awake. Off floor, in radiology for CTA. Await results. Further recommendations based upon results. History reviewed. Symptoms are non-classic for a symptomatic carotid lession. Strongly recommend cardiology evaluation.
--- NOTE | 2017-11-21 11:05 | Consultation ---
<MIKE ALBERTS - Last Filed: 11/21/17 11:36> History of Present Illness Consult date: 11/21/17 Requesting physician: CHANTELLE CAPONE Consult reason: shortness of breath History of present illness: The pt is an 82 YO male with a past medical history significant for HTN, PVD s/ p BLE angioplasty, CVA 10 years ago, tobacco use. He is previously unknown to our practice. He presented with complaints of presyncope and weakness. He reports that he was walking from his car to a facility for lunch a few days ago when he had tunnel vision with loss of peripheral vision that lasted for 2 hours as well as diaphoresis and fatigue with exertion. The following day, he was walking from his car into the same facility when he noted BLE weakness, diaphoresis and fatigue with exertion. He made it into the facility and felt as though he may pass out so he laid his head down on the table and EMS was called and EMS recommended that pt be transported to ED for further eval/management and he was then brought to [facility] ED. Pt denies any chest pain, palpitations, n/v or syncope. He denies any loss of consciousness. Following arrival, MRI was performed showing no acute infarct. There were old lacunar infarcts and sequelae of chronic small vessel disease. Carotid doppler demonstrated 50-79% stenosis of the right side, and severely elevated left carotid velocities which may represent 50-79% or greater than 79% stenosis. Pt denies any prior cardiac issues or cardiac evaluation. Echo done 11/18/2017 showed EF 50-55%, mild to mod MR, mod TR, trace AR, mild LVH , impaired relaxation. Past History Past Medical History: hypertension, PVD, stroke Past Surgical History: No surgical history Social history: Lives alone, smoking. denies: alcohol abuse, prescription drug abuse, IV drug use Family history: hypertension Medications and Allergies Allergies Allergy/AdvReac Type Severity Reaction Status Date / Time No Known Allergies Allergy Verified 11/18/17 22:44 Home Medications Medication Instructions Recorded Confirmed Last Taken Type Diltiazem HCl [Diltiazem ER] 120 mg PO DAILY 11/18/17 11/18/17 Unknown History Tamsulosin [Flomax] 0.4 mg PO QDAY 11/18/17 11/18/17 Unknown History Active Meds: Active Medications Acetaminophen (Tylenol) 650 mg PO Q4H PRN PRN Reason: Pain, Mild (1-3) Albuterol (Proventil) 2.5 mg IH Q3HRT PRN PRN Reason: Shortness Of Breath Amlodipine Besylate (Norvasc) 5 mg PO QDAY [facility] Aspirin (Aspirin) 325 mg PO QDAY [facility] Last Admin: 11/21/17 09:18 Dose: 325 mg Bisacodyl (Dulcolax) 10 mg [place] QDAY PRN PRN Reason: Constipation Enoxaparin Sodium (Lovenox) 40 mg SUB-Q QDAY@1000 [facility] Last Admin: 11/21/17 09:17 Dose: 40 mg Hydralazine HCl (Apresoline) 5 mg IV Q6H PRN PRN Reason: Keep SBP between 160-185 mm Hg Magnesium Hydroxide (Milk Of Magnesia) 30 ml PO Q4H PRN PRN Reason: Constipation Ondansetron HCl (Zofran) 4 mg IV Q8H PRN PRN Reason: N/V unrelieved by Reglan Pravastatin Sodium (Pravachol) 20 mg PO QHS [facility] Last Admin: 11/20/17 21:32 Dose: 20 mg Sodium Chloride (Sodium Chloride Flush Syringe 10 Ml) 10 ml IV PRN PRN PRN Reason: LINE FLUSH Tamsulosin HCl (Flomax) 0.4 mg PO QDAY [facility] Last Admin: 11/21/17 09:20 Dose: 0.4 mg Review of Systems Constitutional: no weight loss, no weight gain, no fever, no chills Ears, nose, mouth and throat: no ear pain, no nose pain, no sinus pressure, no sinus pain Cardiovascular: lightheadedness, high blood pressure, no chest pain, no orthopnea, no palpitations, no rapid/irregular heart beat, no edema, no syncope , no shortness of breath, no dyspnea on exertion, no leg edema Respiratory: no cough, no congestion, no wheezing, no pain on inspiration Gastrointestinal: no abdominal pain, no nausea, no vomiting, no diarrhea, no constipation, no change in bowel habits Genitourinary Male: no dysuria, no hematuria, no flank pain, no discharge, no urinary frequency, no urinary hesitancy Musculoskeletal: no neck stiffness, no neck pain, no shooting arm pain, no arm numbness/tingling, no low back pain, no shooting leg pain, no leg numbness/ tingling, no redness of joints Integumentary: no rash, no pruritis, no redness, no sores, no wounds Neurological: no head injury, no paralysis, no weakness, no parathesias, no numbness, no tingling, no seizures, no syncope Psychiatric: no anxiety Endocrine: no cold intolerance, no heat intolerance Hematologic/Lymphatic: no easy bruising, no easy bleeding, no lymphadenopathy Allergic/Immunologic: no urticaria, no wheezing, no persistent infections Physical Examination Vital Signs Temp Pulse Resp BP Pulse Ox 97.8 F 54 L 18 159/39 100 11/18/17 15:14 11/18/17 15:14 11/18/17 15:14 11/18/17 15:14 11/18/17 15:14 General appearance: no acute distress HEENT: Positive: PERRL, Normocephaly, Mucus Membranes Moist Neck: Positive: neck supple, trachea midline, Bruit (bilaterally ) Cardiac: Positive: Reg Rate and Rhythm, S1/S2 Lungs: Positive: clear to auscultation Neuro: Positive: Grossly Intact, Cranial Nerve 2-12 Intact Abdomen: Positive: Soft Skin: Positive: Clear. Negative: Rash Musculoskeletal: No Fluid Collection, No Pain, Normal Range of Motion Extremities: Absent: edema Results 11/18/17 16:11 11/20/17 15:44 Comprehensive Metabolic Panel 11/20/17 Range/Units 15:44 Sodium 136 L (137-145) mmol/L Potassium 4.7 (3.6-5.0) mmol/L Chloride 99.8 (98-107) mmol/L Carbon Dioxide 24 (22-30) mmol/L BUN 22 H (9-20) mg/dL Creatinine 1.1 (0.8-1.5) mg/dL Glucose 81 (75-100) mg/dL Calcium 8.4 (8.4-10.2) mg/dL - Imaging and Cardiology Echo: report reviewed (11/18/2017 showed EF 50-55%, mild to mod MR, mod TR, trace AR, mild LVH, impaired relaxation.) EKG: report reviewed, image reviewed EKG interpretations - Telemetry EKG Rhythm: Sinus Rhythm - EKG Sinus rhythms and dysrhythmias: sinus rhythm AV and intraventricular conduction: right bundle branch block Assessment and Plan Assessment: Pre - syncope / transient visual disturbances - neurology suspects TIAs Bilateral carotid stenosis - vascular surgery evaluation in progress PVD HTN Sinus bradycardia - asymptomatic RBBB Anemia H/o CVA 10 years ago Elevated DDimer - chest CTA negative for PE Tobacco use - cessation encouraged Plan: Await results of neck CTA for further evaluation of his carotid artery disease. Await vascular recs. Cont ASA and statin. Optimize anti-hypertensive regimen - amlodipine initiated today, will monitor response. Plan for lexiscan MPI stress test in AM. NPO after MN. Assessment and plan reviewed with pt at bedside. The patient has been seen in conjunction with Dr. Tadeo who agrees with the assessment and plan of care. <ROCIO TADEO M - Last Filed: 11/21/17 13:12> Medications and Allergies Active Meds: Active Medications Acetaminophen (Tylenol) 650 mg PO Q4H PRN PRN Reason: Pain, Mild (1-3) Albuterol (Proventil) 2.5 mg IH Q3HRT PRN PRN Reason: Shortness Of Breath Amlodipine Besylate (Norvasc) 5 mg PO QDAY [facility] Aspirin (Aspirin) 325 mg PO QDAY [facility] Last Admin: 11/21/17 09:18 Dose: 325 mg Bisacodyl (Dulcolax) 10 mg [place] QDAY PRN PRN Reason: Constipation Enoxaparin Sodium (Lovenox) 40 mg SUB-Q QDAY@1000 [facility] Last Admin: 11/21/17 09:17 Dose: 40 mg Hydralazine HCl (Apresoline) 5 mg IV Q6H PRN PRN Reason: Keep SBP between 160-185 mm Hg Magnesium Hydroxide (Milk Of Magnesia) 30 ml PO Q4H PRN PRN Reason: Constipation Ondansetron HCl (Zofran) 4 mg IV Q8H PRN PRN Reason: N/V unrelieved by Reglan Pravastatin Sodium (Pravachol) 20 mg PO QHS [facility] Last Admin: 11/20/17 21:32 Dose: 20 mg Sodium Chloride (Sodium Chloride Flush Syringe 10 Ml) 10 ml IV PRN PRN PRN Reason: LINE FLUSH Tamsulosin HCl (Flomax) 0.4 mg PO QDAY [facility] Last Admin: 11/21/17 09:20 Dose: 0.4 mg Physical Examination Vital Signs Temp Pulse Resp BP Pulse Ox 97.8 F 54 L 18 159/39 100 11/18/17 15:14 11/18/17 15:14 11/18/17 15:14 11/18/17 15:14 11/18/17 15:14 Results 11/18/17 16:11 11/20/17 15:44 Comprehensive Metabolic Panel 11/20/17 Range/Units 15:44 Sodium 136 L (137-145) mmol/L Potassium 4.7 (3.6-5.0) mmol/L Chloride 99.8 (98-107) mmol/L Carbon Dioxide 24 (22-30) mmol/L BUN 22 H (9-20) mg/dL Creatinine 1.1 (0.8-1.5) mg/dL Glucose 81 (75-100) mg/dL Calcium 8.4 (8.4-10.2) mg/dL Assessment and Plan TSH 8.30 evaluation per primary team
[2017-11-21] MEDS: NORVASC PO SCH (15:16)
--- NOTE | 2017-11-21 15:36 | Cat Scan Report ---
FINAL REPORT EXAM: CT ANGIO NECK HISTORY: carotid stenosis TECHNIQUE: Spiral CTA of the neck after the uneventful administration of IV contrast. Multiplanar reformations. 100 mL Omnipaque IV. PRIORS: None. FINDINGS: Normal enhancement of the bilateral CCAs, ICAs and ECAs. Very mild, calcific atherosclerotic change in the left carotid bulb, proximal ICA and bilateral cavernous ICAs incidentally noted. Moderate focal narrowing in the bilateral ICA origins, right greater than left, and also left ECA origin, approximating 50-70% stenosis by NASCET criteria. No abnormal aneurysmal dilatation, apparent dissection, significant stenosis or occlusion. Vertebral arteries are patent and symmetric. Pleuro-parenchymal densities and possible scarring in the visualized upper lungs. Diffuse degenerative change in the cervical spine. IMPRESSION: 1. Moderate focal stenosis in bilateral ICA origins as reported.
--- NOTE | 2017-11-21 17:17 | Progress Note ---
Assessment and Plan Assessment and plan: Acute stroke -CT head neg for acute intracranial hemorrhage, MRI showed lacunar infarcts -cont asa, statin, PT/OT -Echo showed ejection fraction of 50-55% with diastolic dysfunction Bilateral internal carotid artery stenosis -bilateral carotid Doppler showed 50-79% stenosis -vascular surgery following Hypertension -cont amlodipine and adjust as needed -diltiazem discontinued due to bradycardia New 0.9cm LT upper lobe density per chest CT scan -for Outpatient follow-up DVT prophylaxis -Lovenox Disposition: Discharge planning after vascular surgery evaluation 28 minutes spent coordinating care History Interval history: Patient seen and examined today. No new complaints. Hospitalist Physical - Constitutional Vitals: Temp Pulse Resp BP Pulse Ox 98.4 F 65 16 148/49 100 11/21/17 07:58 11/21/17 15:16 11/21/17 07:58 11/21/17 15:16 11/21/17 07:58 General appearance: Present: no acute distress - EENT Eyes: Present: PERRL, EOM intact ENT: hearing intact, clear oral mucosa - Neck Neck: Present: supple - Respiratory Respiratory effort: normal Respiratory: bilateral: CTA - Cardiovascular Rhythm: regular Heart Sounds: Present: S1 & S2 - Extremities Extremities: No edema - Abdominal General gastrointestinal: soft, non-tender, normal bowel sounds - Neurologic Neurologic: CNII-XII intact Results - Labs CBC & Chem 7: 11/18/17 16:11 11/20/17 15:44 Labs: Laboratory Last Values WBC 7.6 K/mm3 (4.5-11.0) 11/18/17 16:11 RBC 3.48 M/mm3 (3.65-5.03) L 11/18/17 16:11 Hgb 10.0 gm/dl (11.8-15.2) L 11/18/17 16:11 Hct 30.3 % (35.5-45.6) L 11/18/17 16:11 MCV 87 fl (84-94) 11/18/17 16:11 MCH 29 pg (28-32) 11/18/17 16:11 MCHC 33 % (32-34) 11/18/17 16:11 RDW 16.7 % (13.2-15.2) H 11/18/17 16:11 Plt Count 241 K/mm3 (140-440) 11/18/17 16:11 Lymph % (Auto) 21.4 % (13.4-35.0) 11/18/17 16:11 Bowman % (Auto) 6.8 % (0.0-7.3) 11/18/17 16:11 Eos % (Auto) 1.6 % (0.0-4.3) 11/18/17 16:11 Baso % (Auto) 0.5 % (0.0-1.8) 11/18/17 16:11 Lymph # 1.6 K/mm3 (1.2-5.4) 11/18/17 16:11 Bowman # 0.5 K/mm3 (0.0-0.8) 11/18/17 16:11 Eos # 0.1 K/mm3 (0.0-0.4) 11/18/17 16:11 Baso # 0.0 K/mm3 (0.0-0.1) 11/18/17 16:11 Seg Neutrophils % 69.7 % (40.0-70.0) 11/18/17 16:11 Seg Neutrophils # 5.3 K/mm3 (1.8-7.7) 11/18/17 16:11 PT 12.7 Sec. (12.2-14.9) 11/18/17 16:11 INR 0.91 (0.87-1.13) 11/18/17 16:11 APTT 35.9 Sec. (24.2-36.6) 11/18/17 16:11 D-Dimer 1087.96 ng/mlDDU (0-234) H 11/19/17 05:50 Sodium 136 mmol/L (137-145) L 11/20/17 15:44 Potassium 4.7 mmol/L (3.6-5.0) 11/20/17 15:44 Chloride 99.8 mmol/L (98-107) 11/20/17 15:44 Carbon Dioxide 24 mmol/L (22-30) 11/20/17 15:44 Anion Gap 17 mmol/L 11/20/17 15:44 BUN 22 mg/dL (9-20) H 11/20/17 15:44 Creatinine 1.1 mg/dL (0.8-1.5) 11/20/17 15:44 Estimated GFR > 60 ml/min 11/20/17 15:44 BUN/Creatinine Ratio 20 % 11/20/17 15:44 Glucose 81 mg/dL (75-100) 11/20/17 15:44 POC Glucose 103 (70-105) 11/19/17 22:01 Lactic Acid 1.60 mmol/L (0.7-2.0) 11/18/17 16:11 Calcium 8.4 mg/dL (8.4-10.2) 11/20/17 15:44 Total Bilirubin 0.20 mg/dL (0.1-1.2) 11/18/17 15:30 AST 18 units/L (5-40) 11/18/17 15:30 ALT 7 units/L (7-56) 11/18/17 15:30 Alkaline Phosphatase 77 units/L (35-129) 11/18/17 15:30 Ammonia 38.0 umol/L (25-60) 11/18/17 16:11 Total Creatine Kinase 50 units/L (55-170) L 11/19/17 05:22 CK-MB (CK-2) 1.2 ng/mL (0.0-4.0) 11/19/17 05:22 CK-MB (CK-2) Rel Index 2.4 (0-4) 11/19/17 05:22 Troponin T < 0.010 ng/mL (0.00-0.029) 11/19/17 05:22 Total Protein 7.0 g/dL (6.3-8.2) 11/18/17 15:30 Albumin 3.1 g/dL (3.9-5) L 11/18/17 15:30 Albumin/Globulin Ratio 0.8 % 11/18/17 15:30 Triglycerides 67 mg/dL (2-149) 11/19/17 05:22 Cholesterol 131 mg/dL (50-199) 11/19/17 05:22 LDL Cholesterol Direct 73 mg/dL (50-130) 11/19/17 05:22 HDL Cholesterol 51 mg/dL (40-59) 11/19/17 05:22 Cholesterol/HDL Ratio 2.56 % 11/19/17 05:22 TSH 8.340 mlU/mL (0.270-4.200) H 11/18/17 15:30 Urine Color Yellow (Yellow) 11/18/17 Unknown Urine Turbidity Clear (Clear) 11/18/17 Unknown Urine pH 5.0 (5.0-7.0) 11/18/17 Unknown Ur Specific [place] 1.015 (1.003-1.030) 11/18/17 Unknown Urine Protein 30 mg/dl mg/dL (Negative) 11/18/17 Unknown Urine Glucose (UA) Neg mg/dL (Negative) 11/18/17 Unknown Urine Ketones Neg mg/dL (Negative) 11/18/17 Unknown Urine Blood Sm (Negative) 11/18/17 Unknown Urine Nitrite Neg (Negative) 11/18/17 Unknown Urine Bilirubin Neg (Negative) 11/18/17 Unknown Urine Urobilinogen < 2.0 mg/dL (<2.0) 11/18/17 Unknown Ur Leukocyte Esterase Neg (Negative) 11/18/17 Unknown Urine WBC (Auto) 1.0 /HPF (0.0-6.0) 11/18/17 Unknown Urine RBC (Auto) 4.0 /HPF (0.0-6.0) 11/18/17 Unknown Hyaline Casts 1 /LPF 11/18/17 Unknown Urine Mucus Few /HPF 11/18/17 Unknown Urine Opiates Screen Presumptive negative 11/18/17 Unknown Urine Methadone Screen Presumptive negative 11/18/17 Unknown Ur Barbiturates Screen Presumptive negative 11/18/17 Unknown Ur Phencyclidine Scrn Presumptive negative 11/18/17 Unknown Ur Amphetamines Screen Presumptive negative 11/18/17 Unknown U Benzodiazepines Scrn Presumptive negative 11/18/17 Unknown Urine Cocaine Screen Presumptive negative 11/18/17 Unknown U Marijuana (THC) Screen Presumptive negative 11/18/17 Unknown Drugs of Abuse Note Disclamer 11/18/17 Unknown Plasma/Serum Alcohol < 0.01 % (0-0.07) 11/18/17 16:11
[2017-11-21] MEDS: PRAVACHOL PO SCH (23:54)
[2017-11-22] MEDS ORDERED: LEXISCAN IV ONE (08:05)
[2017-11-22] MEDS: ASPIRIN PO SCH (11:55)
[2017-11-22] MEDS: NORVASC PO SCH (11:56)
[2017-11-22] MEDS: LOVENOX SUB-Q SCH (11:56)
[2017-11-22] MEDS: FLOMAX PO SCH (11:56)
--- NOTE | 2017-11-22 12:13 | Progress Note ---
Assessment and Plan Assessment: Pre - syncope / transient visual disturbances - neurology suspects TIAs Bilateral carotid stenosis - vascular surgery evaluation in progress PVD HTN Sinus bradycardia - asymptomatic RBBB Anemia H/o CVA 10 years ago Elevated DDimer - chest CTA negative for PE Tobacco use - cessation encouraged Plan: S/p lexiscan MPI stress test this AM which was negative for ischemia. Pt is currently at mild to moderate cardiovascular risk for contemplated carotid intervention. There are no immediate cardiac contraindications to proceeding with vascular surgery at this time. Cont ASA and statin. Optimize anti-hypertensive regimen - amlodipine initiated yesterday, will cont to monitor response. Nothing further to add from cardiac perspective at this time. Will follow on as needed basis. Assessment and plan reviewed with pt at bedside. The patient has been seen in conjunction with Dr. Tadeo who agrees with the assessment and plan of care. Subjective Date of service: 11/22/17 Principal diagnosis: carotid stenosis Interval history: pt resting comfortably in bed, s/p stress test this AM. family member at bedside. Objective Last Vital Signs Temp 97.8 F 11/21/17 23:49 Pulse 70 11/22/17 08:40 Resp 20 11/21/17 22:50 BP 159/58 11/22/17 08:40 Pulse Ox 100 11/21/17 23:49 - Physical Examination General: No Apparent Distress HEENT: Positive: PERRL, Normocephaly, Mucus Membranes Moist Neck: Positive: neck supple, trachea midline, Bruit (bilaterally ) Cardiac: Positive: Reg Rate and Rhythm, S1/S2 Lungs: Positive: clear to auscultation Neuro: Positive: Grossly Intact, Cranial Nerve 2-12 Intact Abdomen: Positive: Soft Skin: Positive: Clear. Negative: Rash Musculoskeletal: No Fluid Collection, No Pain, Normal Range of Motion Extremities: Absent: edema - Imaging and Cardiology EKG: report reviewed, image reviewed Echo: report reviewed (11/18/2017 showed EF 50-55%, mild to mod MR, mod TR, trace AR, mild LVH, impaired relaxation.) - Telemetry EKG Rhythm: Sinus Rhythm - EKG Sinus rhythms and dysrhythmias: sinus rhythm AV and intraventricular conduction: right bundle branch block
--- NOTE | 2017-11-22 14:01 | Progress Note ---
Assessment and Plan Pt presents with recurrent episodes of near syncope over last 6 months. He was admitted, and stroke w/u initiated. MRI showed evidence of previous right sided lacunar infarcts, but no acute infarctions. Pt reports h/o previous stroke that resulted in LUE weakness, which subsequently improved. Carotid duplex suggest 50-79% stenosis base upon velocities (333/79 cm/sec). CTA completed and report reviewed (bilat 70% stenosis at the origin of the ICAs) , but images were unable to be accessed and reviewed. Suspect the pt will need L CEA though clinically this does not sound symptomatic and therefore could likely be completed electively in the near future. Will review images. Pt evaluated by cardiology, and cleared for surgery. Unsure if pt's presenting symptoms are fully explained thus far, but will defer to the medical services for full work up. - Patient Problems (1) Carotid stenosis, left Current Visit: Yes Status: Acute Subjective Date of service: 11/22/17 Principal diagnosis: carotid stenosis Interval history: Pt awake and alert. Denies new complaint. Objective - Constitutional Vitals: Vital Signs - 12hr 11/22/17 11/22/17 11/22/17 08:17 08:35 08:36 Pulse Rate 60 74 72 Blood Pressure 187/69 182/59 143/59 O2 Sat by Pulse Oximetry 11/22/17 11/22/17 11/22/17 08:37 08:38 08:39 Pulse Rate 68 69 69 Blood Pressure 150/59 148/62 158/62 O2 Sat by Pulse Oximetry 11/22/17 11/22/17 08:40 11:34 Pulse Rate 70 60 Blood Pressure 159/58 167/55 O2 Sat by Pulse 100 Oximetry General appearance: Present: no acute distress - EENT Eyes: EOM intact ENT: hearing intact - Neck Neck: supple - Respiratory Respiratory effort: normal Extremities: no ischemia - Neurologic Neurologic: no focal deficits - Psychiatric Psychiatric: appropriate mood/affect, intact judgment & insight, cooperative - Labs CBC & Chem 7: 11/18/17 16:11 11/20/17 15:44
[2017-11-22] MEDS ORDERED: NORVASC PO SCH (18:04)
--- NOTE | 2017-11-22 18:05 | Progress Note ---
Assessment and Plan Assessment and plan: 82-year-old male with past medical history significant for hypertension presented to the emergency department for the complaints of loss of vision on out before presentation. In the emergency department CT of head was done and is negative for acute intracranial bleeding Loss of peripheral vision/acute CVA - CT head was done no acute intracranial hemorrhage, MRI showed chronic lacunar infarcs, bilateral carotid Doppler showed 50-79% stenosis and vascular surgery consulted - CT angiogram of the neck was done and showed stenosis, vascular surgery will review the CT angio - Aspirin, statin - PT/OT, neurology consult Hypertension - Uncontrolled - We'll resume home medications Patient has dyspnea on exertion, due to diastolic dysfunction - Echo showed ejection fraction of 50-55% with diastolic dysfunction - Cardiology consulted DVT prophylaxis - Lovenox History Interval history: Patient was seen and evaluated this morning, patient didn't have any complaints. Hospitalist Physical - Physical exam Narrative exam: Not in cardiopulmonary distress. The patient appeared well nourished and normally developed. Vital signs as documented. Head exam is unremarkable. No scleral icterus . Neck is without jugular venous distension, thyromegaly, or carotid bruits. Lungs are clear to auscultation. Cardiac exam reveals regular rate and Rhythm. First and second heart sounds normal. No murmurs, rubs or gallops. Abdominal exam reveals normal bowel sounds, no masses, no organomegaly and no aortic enlargement. Extremities are nonedematous and both femoral and pedal pulses are normal. FAMILY SERVICES COORDINATOR: Alert and oriented 3. No focal weakness. - Constitutional Vitals: Temp Pulse Resp BP Pulse Ox 97.5 F L 62 18 149/49 100 11/22/17 16:00 11/22/17 16:00 11/22/17 16:00 11/22/17 16:00 11/22/17 16:00 General appearance: Present: no acute distress Results - Labs CBC & Chem 7: 11/18/17 16:11 11/20/17 15:44 Labs: Laboratory Last Values WBC 7.6 K/mm3 (4.5-11.0) 11/18/17 16:11 RBC 3.48 M/mm3 (3.65-5.03) L 11/18/17 16:11 Hgb 10.0 gm/dl (11.8-15.2) L 11/18/17 16:11 Hct 30.3 % (35.5-45.6) L 11/18/17 16:11 MCV 87 fl (84-94) 11/18/17 16:11 MCH 29 pg (28-32) 11/18/17 16:11 MCHC 33 % (32-34) 11/18/17 16:11 RDW 16.7 % (13.2-15.2) H 11/18/17 16:11 Plt Count 241 K/mm3 (140-440) 11/18/17 16:11 Lymph % (Auto) 21.4 % (13.4-35.0) 11/18/17 16:11 [place] % (Auto) 6.8 % (0.0-7.3) 11/18/17 16:11 Eos % (Auto) 1.6 % (0.0-4.3) 11/18/17 16:11 Baso % (Auto) 0.5 % (0.0-1.8) 11/18/17 16:11 Lymph # 1.6 K/mm3 (1.2-5.4) 11/18/17 16:11 [place] # 0.5 K/mm3 (0.0-0.8) 11/18/17 16:11 Eos # 0.1 K/mm3 (0.0-0.4) 11/18/17 16:11 Baso # 0.0 K/mm3 (0.0-0.1) 11/18/17 16:11 Seg Neutrophils % 69.7 % (40.0-70.0) 11/18/17 16:11 Seg Neutrophils # 5.3 K/mm3 (1.8-7.7) 11/18/17 16:11 PT 12.7 Sec. (12.2-14.9) 11/18/17 16:11 INR 0.91 (0.87-1.13) 11/18/17 16:11 APTT 35.9 Sec. (24.2-36.6) 11/18/17 16:11 D-Dimer 1087.96 ng/mlDDU (0-234) H 11/19/17 05:50 Sodium 136 mmol/L (137-145) L 11/20/17 15:44 Potassium 4.7 mmol/L (3.6-5.0) 11/20/17 15:44 Chloride 99.8 mmol/L (98-107) 11/20/17 15:44 Carbon Dioxide 24 mmol/L (22-30) 11/20/17 15:44 Anion Gap 17 mmol/L 11/20/17 15:44 BUN 22 mg/dL (9-20) H 11/20/17 15:44 Creatinine 1.1 mg/dL (0.8-1.5) 11/20/17 15:44 Estimated GFR > 60 ml/min 11/20/17 15:44 BUN/Creatinine Ratio 20 % 11/20/17 15:44 Glucose 81 mg/dL (75-100) 11/20/17 15:44 POC Glucose 103 (70-105) 11/19/17 22:01 Lactic Acid 1.60 mmol/L (0.7-2.0) 11/18/17 16:11 Calcium 8.4 mg/dL (8.4-10.2) 11/20/17 15:44 Total Bilirubin 0.20 mg/dL (0.1-1.2) 11/18/17 15:30 AST 18 units/L (5-40) 11/18/17 15:30 ALT 7 units/L (7-56) 11/18/17 15:30 Alkaline Phosphatase 77 units/L (35-129) 11/18/17 15:30 Ammonia 38.0 umol/L (25-60) 11/18/17 16:11 Total Creatine Kinase 50 units/L (55-170) L 11/19/17 05:22 CK-MB (CK-2) 1.2 ng/mL (0.0-4.0) 11/19/17 05:22 CK-MB (CK-2) Rel Index 2.4 (0-4) 11/19/17 05:22 Troponin T < 0.010 ng/mL (0.00-0.029) 11/19/17 05:22 Total Protein 7.0 g/dL (6.3-8.2) 11/18/17 15:30 Albumin 3.1 g/dL (3.9-5) L 11/18/17 15:30 Albumin/Globulin Ratio 0.8 % 11/18/17 15:30 Triglycerides 67 mg/dL (2-149) 11/19/17 05:22 Cholesterol 131 mg/dL (50-199) 11/19/17 05:22 LDL Cholesterol Direct 73 mg/dL (50-130) 11/19/17 05:22 HDL Cholesterol 51 mg/dL (40-59) 11/19/17 05:22 Cholesterol/HDL Ratio 2.56 % 11/19/17 05:22 TSH 8.340 mlU/mL (0.270-4.200) H 11/18/17 15:30 Free T4 0.94 ng/dL (0.76-1.46) 11/22/17 10:13 Urine Color Yellow (Yellow) 11/18/17 Unknown Urine Turbidity Clear (Clear) 11/18/17 Unknown Urine pH 5.0 (5.0-7.0) 11/18/17 Unknown Ur Specific [place] 1.015 (1.003-1.030) 11/18/17 Unknown Urine Protein 30 mg/dl mg/dL (Negative) 11/18/17 Unknown Urine Glucose (UA) Neg mg/dL (Negative) 11/18/17 Unknown Urine Ketones Neg mg/dL (Negative) 11/18/17 Unknown Urine Blood Sm (Negative) 11/18/17 Unknown Urine Nitrite Neg (Negative) 11/18/17 Unknown Urine Bilirubin Neg (Negative) 11/18/17 Unknown Urine Urobilinogen < 2.0 mg/dL (<2.0) 11/18/17 Unknown Ur Leukocyte Esterase Neg (Negative) 11/18/17 Unknown Urine WBC (Auto) 1.0 /HPF (0.0-6.0) 11/18/17 Unknown Urine RBC (Auto) 4.0 /HPF (0.0-6.0) 11/18/17 Unknown Hyaline Casts 1 /LPF 11/18/17 Unknown Urine Mucus Few /HPF 11/18/17 Unknown Urine Opiates Screen Presumptive negative 11/18/17 Unknown Urine Methadone Screen Presumptive negative 11/18/17 Unknown Ur Barbiturates Screen Presumptive negative 11/18/17 Unknown Ur Phencyclidine Scrn Presumptive negative 11/18/17 Unknown Ur Amphetamines Screen Presumptive negative 11/18/17 Unknown U Benzodiazepines Scrn Presumptive negative 11/18/17 Unknown Urine Cocaine Screen Presumptive negative 11/18/17 Unknown U Marijuana (THC) Screen Presumptive negative 11/18/17 Unknown Drugs of Abuse Note Disclamer 11/18/17 Unknown Plasma/Serum Alcohol < 0.01 % (0-0.07) 11/18/17 16:11
--- NOTE | 2017-11-22 18:32 | Discharge Summary ---
Providers - Providers Date of Admission: 11/18/17 22:15 Attending physician: CHANTELLE CAPONE MD 11/18/17 22:15 Occupational Therapy Evaluate and Treat [CONS] Routine Comment: Reason For Exam: Neuro deficits Physical Therapy Evaluation and Treat [CONS] Routine Comment: Reason For Exam: Neuro deficits 11/19/17 09:50 Consult to Physician [CONS] Routine Comment: Consulting Provider: RYLIE WORRELL Physician Instructions: Reason For Exam: blurred vision, TIA 11/19/17 15:23 Consult to Physician [CONS] Routine Comment: Consulting Provider: PRATIMA ODONNELL Physician Instructions: Reason For Exam: Bilateral carotid artery stenosis 11/20/17 16:25 Consult to Physician [CONS] Routine Comment: Consulting Provider: GINI BALDWIN Physician Instructions: Reason For Exam: Dyspnea on exertion Primary care physician: ZOLTAN BRAUN Hospitalization Reason for admission: TIA Condition: Stable Disposition: [id number]/TX-06 HOME UNDER HOME [facility] Time spent for discharge: 31 minutes - Discharge Diagnoses (1) Carotid stenosis, left Status: Acute (2) TIA (transient ischemic attack) Status: Acute Qualifiers: Transient cerebral ischemia type: unspecified Qualified Code(s): G45.9 - Transient cerebral ischemic attack, unspecified (3) Hypertension Status: Acute Core Measure Documentation - Palliative Care Palliative Care/ Comfort Measures: Not Applicable - Core Measures Any of the following diagnoses?: none Exam - Physical Exam Narrative exam: Not in cardiopulmonary distress. The patient appeared well nourished and normally developed. Vital signs as documented. Head exam is unremarkable. No scleral icterus . Neck is without jugular venous distension, thyromegaly, or carotid bruits. Lungs are clear to auscultation. Cardiac exam reveals regular rate and Rhythm. First and second heart sounds normal. No murmurs, rubs or gallops. Abdominal exam reveals normal bowel sounds, no masses, no organomegaly and no aortic enlargement. Extremities are nonedematous and both femoral and pedal pulses are normal. GRANITE FABRICATOR: Alert and oriented 3. No focal weakness. - Constitutional Vitals: Temp Pulse Resp BP Pulse Ox 97.5 F L 62 18 149/49 100 11/22/17 16:00 11/22/17 16:00 11/22/17 16:00 11/22/17 16:00 11/22/17 16:00 Plan Activity: no restrictions Weight Bearing Status: Full Weight Bearing Diet: low cholesterol, low salt Follow up with: ZOLTAN BRAUN MD [Primary Care Provider] - 7 Days ZOLTAN NEWTON MD [Staff Physician] - 7 Days Prescriptions: AtorvaSTATin [Lipitor] 20 mg PO QHS #30 tab amLODIPine [Norvasc] 10 mg PO DAILY #30 tab Aspirin 325 mg PO DAILY #30 tablet
[2017-11-22 21:03] VITALS: BP 139/44
== END 2017-11-22 21:55 | disposition home health service (06) | DRG 68 ==
LOC: ED 14:10 → 4A 22:15
PROVIDERS: ADMIT Internal Medicine; ATTEND Internal Medicine
DX: I65.23 Occlusion and stenosis of bilateral carotid arteries (principal); Z86.73 Personal history of transient ischemic attack (TIA), and cerebral infarction without residual deficits; F17.210 Nicotine dependence, cigarettes, uncomplicated; E03.9 Hypothyroidism, unspecified; I73.9 Peripheral vascular disease, unspecified; J44.9 Chronic obstructive pulmonary disease, unspecified; I10 Essential (primary) hypertension; R00.1 Bradycardia, unspecified; I45.10 Unspecified right bundle-branch block; D64.9 Anemia, unspecified
CPT/HCPCS: 36415; 70450; 70498; 70551; 71045; 71275; 78452; 80048; 80053; 80061; 80307; 80320; 81001; 82140; 82550; 82553; 82962; 84439; 84443; 84484; 85025; 85379; 85610; 85730; 93005; 93010; 93017; 93306; 93880; 99285; A9270-GY; A9502; G0480; G8978-GP; G8979-GP; G8980-GP; G8987-GO; G8988-GO; G8989-GO; J1650; J2785; Q9967

== ENCOUNTER 2019-11-07 18:41 | Inpatient (IN) | payer MEDICARE ==
[2019-11-07 21:03] LABS: Hematocrit 20.9 % (35.5-45.6); Hemoglobin 6.5 gm/dl (11.8-15.2); Mean Corpuscular HGB Conc 31 % (32-34); Mean Corpuscular Volume 91 fl (84-94); Platelet Count 369 K/mm3 (140-440); Red Blood Count 2.29 M/mm3 (3.65-5.03)
[2019-11-07 21:05] LABS: Red Cell Distribution Width 25.5 % (13.2-15.2)
[2019-11-07 21:20] LABS: BUN/Creatinine Ratio 23; Blood Urea Nitrogen 30 mg/dL (9-20); Hemolysis Index 3
[2019-11-07 21:37] LABS: Basophils % (Manual) 0 % (0.0-1.8); Total Cells Counted 100
[2019-11-07 21:39] LABS: Anisocytosis 1+; Platelet Estimate Consistent w Auto; Target Cells Rare; Tear Drop Cells Rare
[2019-11-07] MEDS ORDERED: SODIUM CHLORIDE 0.9% 500 ML 500 ML IV ONE (22:00)
--- NOTE | 2019-11-07 22:28 | Emergency Department Report ---
ED General Adult HPI - General Chief complaint: Recheck/Abnormal Lab/Rx Stated complaint: ABNORMAL LABS Time Seen by Provider: 11/07/19 19:34 Source: EMS Mode of arrival: Stretcher Limitations: No Limitations - History of Present Illness Initial comments: Patient is 84-year-old F [place] male who is presenting for confirmation of abnormal lab. Patient had lab work done which showed that he had a hemoglobin less than 6. Patient states he feels fine has no pain and that nothing is wrong with him. Patient believe has some mild dementia. Patient states that he does not believe that the laboratory studies were correct. He denies any shortness of breath chest pain fevers chills nausea vomiting or bloody stools at this time. - Related Data Home Medications Medication Instructions Recorded Confirmed Last Taken Tamsulosin [Flomax] 0.4 mg PO QDAY 11/18/17 11/18/17 Unknown Previous Rx's Medication Instructions Recorded Last Taken Type Aspirin 325 mg PO DAILY #30 tablet 11/22/17 Unknown Rx AtorvaSTATin [Lipitor] 20 mg PO QHS #30 tab 11/22/17 Unknown Rx amLODIPine 10 mg PO DAILY #30 tab 11/22/17 Unknown Rx Allergies Allergy/AdvReac Type Severity Reaction Status Date / Time No Known Allergies Allergy Verified 11/18/17 22:44 ED Review of Systems ROS: Stated complaint: ABNORMAL LABS Other details as noted in HPI Comment: All other systems reviewed and negative ED Past Medical Hx - Past Medical History Previous Medical History?: Yes Hx Hypertension: Yes Hx CVA: Yes Hx Heart Attack/AMI: No Hx Congestive Heart Failure: No Hx Diabetes: No Hx Deep Vein Thrombosis: No Hx Pulmonary Embolism: No Hx GERD: No Hx Liver Disease: No Hx Renal Disease: No Hx Sickle Cell Disease: No Hx Arthritis: No Hx Headaches / Migraines: No Hx Seizures: No Hx Kidney Stones: No Hx Psychiatric Treatment: No Hx Asthma: No Hx COPD: No Hx Tuberculosis: No Hx Dementia: No Hx HIV: No - Surgical History Past Surgical History?: No Hx Coronary Stent: No Hx Open Heart Surgery: No Hx Pacemaker: No Hx Internal Defibrillator: No Hx Cholecystectomy: No Hx Appendectomy: No Hx Breast Surgery: No - Social History Smoking Status: Never Smoker - Medications Home Medications: Home Medications Medication Instructions Recorded Confirmed Last Taken Type Tamsulosin [Flomax] 0.4 mg PO QDAY 11/18/17 11/18/17 Unknown History Aspirin 325 mg PO DAILY #30 tablet 11/22/17 Unknown Rx AtorvaSTATin [Lipitor] 20 mg PO QHS #30 tab 11/22/17 Unknown Rx amLODIPine 10 mg PO DAILY #30 tab 11/22/17 Unknown Rx ED Physical Exam - General Limitations: No Limitations General appearance: alert, in no apparent distress - Head Head exam: Present: atraumatic, normocephalic - Eye Eye exam: Present: normal appearance - ENT ENT exam: Present: mucous membranes moist - Neck Neck exam: Present: normal inspection - Respiratory Respiratory exam: Present: normal lung sounds bilaterally. Absent: respiratory distress, wheezes, rales, rhonchi - Cardiovascular Cardiovascular Exam: Present: regular rate, normal rhythm, normal heart sounds. Absent: systolic murmur, diastolic murmur, rubs, gallop - GI/Abdominal GI/Abdominal exam: Present: soft, normal bowel sounds. Absent: distended, tenderness, guarding - Rectal Rectal exam: Present: deferred, heme (+) stool - Extremities Exam Extremities exam: Present: normal inspection - Back Exam Back exam: Present: normal inspection - Neurological Exam Neurological exam: Present: alert, oriented X3 - Psychiatric Psychiatric exam: Present: normal affect, normal mood - Skin Skin exam: Present: warm, dry, intact, normal color. Absent: rash ED Course Vital Signs 11/07/19 18:45 Temperature 98.8 F Pulse Rate 98 H Respiratory 18 Rate Blood Pressure 106/72 O2 Sat by Pulse 97 Oximetry ED Medical Decision Making - Lab Data Result diagrams: 11/07/19 20:34 11/07/19 20:34 - Medical Decision Making Patient was guaiac positive. Patient hemoglobin is less than 7 and he will be transfused. Patient be admitted for observation. Critical care attestation.: If time is entered above; I have spent that time in minutes in the direct care of this critically ill patient, excluding procedure time. ED Disposition Clinical Impression: Anemia, Lower GI bleed Disposition: OP ADMIT IP TO THIS HOSP Is pt being admited?: Yes Does the pt Need Aspirin: No Condition: Stable Time of Disposition: 22:28
[2019-11-07] MEDS ORDERED: SODIUM CHLORIDE 0.9% 500 ML 500 ML ONE (23:33)
[2019-11-08] MEDS ORDERED: ONDANSETRON 4 MG/2 ML INJ IV PRN (00:05)
[2019-11-08] MEDS ORDERED: ACETAMINOPHEN 650 MG RECT SUPP PR PRN (00:05)
[2019-11-08] MEDS: PANTOPRAZOLE 40 MG INJ IV SCH ×3 (02:45→21:27)
[2019-11-08] MEDS: SODIUM CHLORIDE 0.9% 1000 ML 1,000 ML IV SCH ×2 (02:45→16:32)
--- NOTE | 2019-11-08 05:43 | History and Physical Report ---
History of Present Illness Date of examination: 11/07/19 Date of admission: 11/07/19 22:28 Chief complaint: Chief complaint is abnormal lab results showing low hemoglobin of 6 History of present illness: History of presenting illness, patient is an 84-year-old male who was noted to have abnormal outpatient lab test that showed a low hemoglobin of 6 and because of that patient was sent over to the emergency room where he was evaluated and found to have guaiac positive stool. He has no history of nausea or vomiting and there was no history of hematemesis. There was also no history of shortness of breath dizziness or chest pain, patient did not take any nonsteroidal anti- inflammatory agent and was noted not to have drank any alcohol. Past History Past Medical History: hypertension, stroke, other (DEMENTIA, BPH) Past Surgical History: No surgical history Social history: no significant social history Family history: no significant family history Medications and Allergies Allergies Allergy/AdvReac Type Severity Reaction Status Date / Time No Known Allergies Allergy Verified 11/18/17 22:44 Home Medications Medication Instructions Recorded Confirmed Last Taken Type Tamsulosin [Flomax] 0.4 mg PO QDAY 11/18/17 11/07/19 Unknown History Aspirin 325 mg PO DAILY #30 tablet 11/22/17 11/07/19 Unknown Rx AtorvaSTATin [Lipitor] 20 mg PO QHS #30 tab 11/22/17 11/07/19 Unknown Rx amLODIPine 10 mg PO DAILY #30 tab 11/22/17 11/07/19 Unknown Rx Active Meds: Active Medications Acetaminophen (Tylenol) 650 mg [place] Q4H PRN PRN Reason: Fever >101 Sodium Chloride (Nacl 0.9% 1000 Ml) 1,000 mls @ 75 mls/hr IV DIRECT [facility] Last Admin: 11/08/19 02:45 Dose: 75 mls/hr Documented by: Ondansetron HCl (Zofran) 4 mg IV Q8H PRN PRN Reason: Nausea And Vomiting Pantoprazole Sodium (Protonix) 40 mg IV BID [facility] Last Admin: 11/08/19 02:45 Dose: 40 mg Documented by: Review of Systems Constitutional: no weight loss, no weight gain, no fever, no chills, no sweats, no fatigue, no weakness, no malaise, no lethargy Eyes: bilateral: other (NO MBILATERAL EYE SYMPTOMS) Ears, nose, mouth and throat: deferred, no nasal congestion, no nasal discharge, no sinus pressure, no mouth pain, no hoarseness, no sore throat, no headache, no vertigo Cardiovascular: no chest pain, no orthopnea, no palpitations, no syncope, no lightheadedness, no paroxysmal nocturnal dyspnea, no high blood pressure, no decreased exercise tolerance Respiratory: no cough, no cough with sputum, no hemoptysis, no shortness of breath, no dyspnea on exertion, no pleurisy, no respiratory infections Gastrointestinal: no abdominal pain, no nausea, no vomiting, no diarrhea, no constipation, no change in bowel habits, no hematemesis, no melena, no hematochezia, no loss of appetite, no early satiety, no jaundice Genitourinary Male: no dysuria, no hematuria, no flank pain, no discharge, no urinary frequency, no urinary hesitancy, no nocturia, no incontinence, no erect ile dysfunction, no decreased libido, no testicular pain, no testicular lump, no difficulties fathering child, no polyuria Rectal: no pain, no incontinence, no hemorrhoids, no discharge, no flatulence Musculoskeletal: no neck stiffness, no neck pain, no shooting arm pain, no arm numbness/tingling, no low back pain, no shooting leg pain, no leg numb ness/tingling, no morning stiffness, no muscle weakness, no muscle cramps, no myalgias, no atrophy, no limitation of motion, no frequent falls, no fractures, no loss of height, no prior amputations Integumentary: no rash, no pruritis, no redness, no sores, no wounds, no nemo dice, no darkening of skin, no depigmentation, no dryness, no brittle nails, no hirsutism Neurological: no head injury, no transient paralysis, no paralysis, no weakness, no parathesias, no numbness, no tingling, no seizures, no syncope, no tremors, no headaches, no migraines, no convulsions, no aphasia, no change in speech, no change in mentation, no confusion, no memory loss, no motor disturbance, no sensory deficit, no double vision, no loss of vision Psychiatric: no anxiety, no insomnia, no hypersomnia, no change in appetite, no change in libido, no suicidal ideation, no disorientation, no hallucinations Endocrine: no cold intolerance, no heat intolerance, no polydipsia, no polyuria, no nocturia, no proptosis Hematologic/Lymphatic: no easy bruising, no easy bleeding, no lymphadenopathy, no lymphedema Allergic/Immunologic: no urticaria, no persistent infections, no gluten intolerance, no seasonal allergies Exam - Constitutional Vitals: Temp Pulse Resp BP Pulse Ox 97.9 F 69 16 111/54 100 11/08/19 03:39 11/08/19 04:20 11/08/19 03:39 11/08/19 03:39 11/08/19 04:20 General appearance: Absent: no acute distress, mild distress, severe distress, well-nourished, disheveled - EENT Eyes: Absent: PERRL, EOM intact, scleral icterus, conjunctival injection, exopthalmos, miosis, mydriasis ENT: no hearing intact, no clear oral mucosa, no dentition normal - Neck Neck: Present: supple, normal ROM. Absent: carotid bruits - Respiratory Respiratory effort: normal - Cardiovascular Rhythm: regular Heart Sounds: Present: S1 & S2. Absent: systolic murmur, diastolic murmur - Extremities Extremities: no ischemia, No edema Peripheral Pulses: within normal limits - Abdominal General gastrointestinal: Present: soft, non-tender, non-distended. Absent: tender, distended, rigid, hepatomegaly, splenomegaly Male genitourinary: Present: deferred - Rectal Rectal Exam: deferred - Integumentary Integumentary: Present: clear, warm. Absent: dry, erythema, jaundice, rash, clammy, pale - Musculoskeletal Musculoskeletal: strength equal bilaterally, right sided weakness - Psychiatric Psychiatric: appropriate mood/affect Results - Labs CBC & Chem 7: 11/07/19 20:34 11/07/19 20:34 Labs: Laboratory Last Values WBC 6.1 K/mm3 (4.5-11.0) 11/07/19 20:34 RBC 2.29 M/mm3 (3.65-5.03) L 11/07/19 20:34 Hgb 6.5 gm/dl (11.8-15.2) L 11/07/19 20:34 Hct 20.9 % (35.5-45.6) L 11/07/19 20:34 MCV 91 fl (84-94) 11/07/19 20:34 MCH 29 pg (28-32) 11/07/19 20:34 MCHC 31 % (32-34) L 11/07/19 20:34 RDW 25.5 % (13.2-15.2) H 11/07/19 20:34 Plt Count 369 K/mm3 (140-440) 11/07/19 20:34 Add Manual Diff Complete 11/07/19 20:34 Total Counted 100 11/07/19 20:34 Seg Neuts % (Manual) 76.0 % (40.0-70.0) H 11/07/19 20:34 Band Neutrophils % 0 % 11/07/19 20:34 Lymphocytes % (Manual) 17.0 % (13.4-35.0) 11/07/19 20:34 Reactive Lymphs % (Man) 0 % 11/07/19 20:34 Monocytes % (Manual) 5.0 % (0.0-7.3) 11/07/19 20:34 Eosinophils % (Manual) 2.0 % (0.0-4.3) 11/07/19 20:34 Basophils % (Manual) 0 % (0.0-1.8) 11/07/19 20:34 Metamyelocytes % 0 % 11/07/19 20:34 Myelocytes % 0 % 11/07/19 20:34 Promyelocytes % 0 % 11/07/19 20:34 Blast Cells % 0 % 11/07/19 20:34 Nucleated RBC % Not Reportable 11/07/19 20:34 Seg Neutrophils # Man 4.6 K/mm3 (1.8-7.7) 11/07/19 20:34 Band Neutrophils # 0.0 K/mm3 11/07/19 20:34 Lymphocytes # (Manual) 1.0 K/mm3 (1.2-5.4) L 11/07/19 20:34 Abs React Lymphs (Man) 0.0 K/mm3 11/07/19 20:34 Monocytes # (Manual) 0.3 K/mm3 (0.0-0.8) 11/07/19 20:34 Eosinophils # (Manual) 0.1 K/mm3 (0.0-0.4) 11/07/19 20:34 Basophils # (Manual) 0.0 K/mm3 (0.0-0.1) 11/07/19 20:34 Metamyelocytes # 0.0 K/mm3 11/07/19 20:34 Myelocytes # 0.0 K/mm3 11/07/19 20:34 Promyelocytes # 0.0 K/mm3 11/07/19 20:34 Blast Cells # 0.0 K/mm3 11/07/19 20:34 WBC Morphology Not Reportable 11/07/19 20:34 Hypersegmented Neuts Not Reportable 11/07/19 20:34 Hyposegmented Neuts Not Reportable 11/07/19 20:34 Hypogranular Neuts Not Reportable 11/07/19 20:34 Smudge Cells Not Reportable 11/07/19 20:34 Toxic Granulation Not Reportable 11/07/19 20:34 Toxic Vacuolation Not Reportable 11/07/19 20:34 Dohle Bodies Not Reportable 11/07/19 20:34 Pelger-Huet Anomaly Not Reportable 11/07/19 20:34 Katey Rods Not Reportable 11/07/19 20:34 Platelet Estimate Consistent w auto 11/07/19 20:34 Clumped Platelets Not Reportable 11/07/19 20:34 Plt Clumps, EDTA Not Reportable 11/07/19 20:34 Large Platelets Not Reportable 11/07/19 20:34 Giant Platelets Not Reportable 11/07/19 20:34 Platelet Satelliting Not Reportable 11/07/19 20:34 Plt Morphology Comment Not Reportable 11/07/19 20:34 RBC Morphology Not Reportable 11/07/19 20:34 Dimorphic RBCs Not Reportable 11/07/19 20:34 Polychromasia Not Reportable 11/07/19 20:34 Hypochromasia Not Reportable 11/07/19 20:34 Poikilocytosis Not Reportable 11/07/19 20:34 Anisocytosis 1+ 11/07/19 20:34 Microcytosis Not Reportable 11/07/19 20:34 Macrocytosis Not Reportable 11/07/19 20:34 Spherocytes Not Reportable 11/07/19 20:34 Pappenheimer Bodies Not Reportable 11/07/19 20:34 Sickle Cells Not Reportable 11/07/19 20:34 Target Cells Rare 11/07/19 20:34 Tear Drop Cells Rare 11/07/19 20:34 Ovalocytes Not Reportable 11/07/19 20:34 Helmet Cells Not Reportable 11/07/19 20:34 [place]-Granite Bodies Not Reportable 11/07/19 20:34 [place] Rings Not Reportable 11/07/19 20:34 Timbo Cells Not Reportable 11/07/19 20:34 Bite Cells Not Reportable 11/07/19 20:34 Crenated Cell Not Reportable 11/07/19 20:34 Elliptocytes Not Reportable 11/07/19 20:34 Acanthocytes (Spur) Not Reportable 11/07/19 20:34 Rouleaux Not Reportable 11/07/19 20:34 Hemoglobin C Crystals Not Reportable 11/07/19 20:34 Schistocytes Not Reportable 11/07/19 20:34 Malaria parasites Not Reportable 11/07/19 20:34 Bradford Bodies Not Reportable 11/07/19 20:34 Hem Pathologist Commnt No 11/07/19 20:34 Sodium 135 mmol/L (137-145) L 11/07/19 20:34 Potassium 4.4 mmol/L (3.6-5.0) 11/07/19 20:34 Chloride 103.6 mmol/L (98-107) 11/07/19 20:34 Carbon Dioxide 19 mmol/L (22-30) L 11/07/19 20:34 Anion Gap 17 mmol/L 11/07/19 20:34 BUN 30 mg/dL (9-20) H 11/07/19 20:34 Creatinine 1.3 mg/dL (0.8-1.5) 11/07/19 20:34 Estimated GFR > 60 ml/min 11/07/19 20:34 BUN/Creatinine Ratio 23 % 11/07/19 20:34 Glucose 89 mg/dL (75-100) 11/07/19 20:34 Calcium 9.0 mg/dL (8.4-10.2) 11/07/19 20:34 Blood Type A POSITIVE 11/07/19 20:41 Antibody Screen Negative 11/07/19 20:41 Crossmatch See Detail 11/07/19 20:41 Assessment and Plan - Patient Problems (1) Anemia Current Visit: Yes Status: Acute (2) Lower GI bleed Current Visit: Yes Status: Acute Plan to address problem: 1. Patient in the treatment of this patient patient will be admitted to telemet ry, and will have serial hemoglobin and hematocrit every 6 hours x 2 more levels 2. Patient will be on IV Protonix 40 mg every 12 hours, and will be on Tylenol suppository 650 mg every 4 hours for fever and headache 3. Patient will have GI consult with [facility] and will be seen by Dr. Juan Alberto Kevin 4 patient will remain n.p.o. until seen by the oleomargarine maker 5 patient will be on IV Zofran 4 mg every 8 hours for nausea and vomiting
[2019-11-08 05:57] LABS: Hematocrit 22.9 % (35.5-45.6); Hemoglobin 7.3 gm/dl (11.8-15.2)
[2019-11-08] MEDS ORDERED: hydrALAZINE 20 MG/1 ML INJ IV PRN (13:14)
--- NOTE | 2019-11-08 13:18 | Progress Note ---
Assessment and Plan Assessment and plan: 84-[facility]-old [facility] was sent to emergency room with abnormal lab hemoglobin of 6.5 Possible GI bleeding/heme positive stool. Patient also complains of generalized weakness dizziness And lightheadedness. Received 1 unit of PRBC with slight improvement of H&H GI consult., PT requested. --Lower GI bleeding/heme positive stool, anemia N.p.o. status, IV fluids, IV Protonix, GI consult --Acute blood loss anemia; Hb 6.5[baseline 10.0 per records] Probably secondary to GI bleeding, received 1 unit of PRBC Closely monitor H&H, transfuse additional unit of PRBC as needed --Symptomatic anemia; dizziness, lightheadedness Feeling like passing out ,?near syncope Fall precautions, physical therapy --History of hypertension; moderate control Resume home antihypertensives, PRN hydralazine --History of BPH; resume home tamsulosin --DVT prophylaxis; SCDs No pharmacologic anticoagulation in view of GI bleeding --Full CODE STATUS; Monitor closely and adjust management as needed Follow GI evaluation and recommendation Disposition; DC back to SNF tomorrow if patient and H&H are stable History Interval history: Patient seen and examined at the bedside this morning Patient's chart, medications and tests reviewed Patient was admitted with history of GI bleeding with severe anemia Patient received 1 unit of PRBC, GI consulted Patient complains of dizziness lightheadedness And generalized weakness Feels like passing out Acute signs reviewed Hospitalist Physical - Constitutional Vitals: Temp Pulse Resp BP Pulse Ox 97.0 F L 57 L 16 133/70 100 11/08/19 11:14 11/08/19 11:14 11/08/19 11:14 11/08/19 11:14 11/08/19 11:14 General appearance: Present: mild distress, cachectic, disheveled - EENT Eyes: Present: PERRL, EOM intact - Neck Neck: Present: supple - Respiratory Respiratory effort: normal Respiratory: bilateral: diminished, negative: rales, rhonchi, wheezing - Cardiovascular Rhythm: regular Heart Sounds: Present: S1 & S2 - Extremities Extremities: no ischemia, No edema - Abdominal General gastrointestinal: soft, non-tender, non-distended, normal bowel sounds - Integumentary Integumentary: Present: clear, warm - Psychiatric Psychiatric: other (Confused at times) - Neurologic Neurologic: moves all extremities Results - Labs CBC & Chem 7: 11/08/19 05:37 11/07/19 20:34 Labs: Laboratory Last Values WBC 6.1 K/mm3 (4.5-11.0) 11/07/19 20:34 RBC 2.29 M/mm3 (3.65-5.03) L 11/07/19 20:34 Hgb 7.3 gm/dl (11.8-15.2) L 11/08/19 05:37 Hct 22.9 % (35.5-45.6) L 11/08/19 05:37 MCV 91 fl (84-94) 11/07/19 20:34 MCH 29 pg (28-32) 11/07/19 20:34 MCHC 31 % (32-34) L 11/07/19 20:34 RDW 25.5 % (13.2-15.2) H 11/07/19 20:34 Plt Count 369 K/mm3 (140-440) 11/07/19 20:34 Add Manual Diff Complete 11/07/19 20:34 Total Counted 100 11/07/19 20:34 Seg Neuts % (Manual) 76.0 % (40.0-70.0) H 11/07/19 20:34 Band Neutrophils % 0 % 11/07/19 20:34 Lymphocytes % (Manual) 17.0 % (13.4-35.0) 11/07/19 20:34 Reactive Lymphs % (Man) 0 % 11/07/19 20:34 Monocytes % (Manual) 5.0 % (0.0-7.3) 11/07/19 20:34 Eosinophils % (Manual) 2.0 % (0.0-4.3) 11/07/19 20:34 Basophils % (Manual) 0 % (0.0-1.8) 11/07/19 20:34 Metamyelocytes % 0 % 11/07/19 20:34 Myelocytes % 0 % 11/07/19 20:34 Promyelocytes % 0 % 11/07/19 20:34 Blast Cells % 0 % 11/07/19 20:34 Nucleated RBC % Not Reportable 11/07/19 20:34 Seg Neutrophils # Man 4.6 K/mm3 (1.8-7.7) 11/07/19 20:34 Band Neutrophils # 0.0 K/mm3 11/07/19 20:34 Lymphocytes # (Manual) 1.0 K/mm3 (1.2-5.4) L 11/07/19 20:34 Abs React Lymphs (Man) 0.0 K/mm3 11/07/19 20:34 Monocytes # (Manual) 0.3 K/mm3 (0.0-0.8) 11/07/19 20:34 Eosinophils # (Manual) 0.1 K/mm3 (0.0-0.4) 11/07/19 20:34 Basophils # (Manual) 0.0 K/mm3 (0.0-0.1) 11/07/19 20:34 Metamyelocytes # 0.0 K/mm3 11/07/19 20:34 Myelocytes # 0.0 K/mm3 11/07/19 20:34 Promyelocytes # 0.0 K/mm3 11/07/19 20:34 Blast Cells # 0.0 K/mm3 11/07/19 20:34 WBC Morphology Not Reportable 11/07/19 20:34 Hypersegmented Neuts Not Reportable 11/07/19 20:34 Hyposegmented Neuts Not Reportable 11/07/19 20:34 Hypogranular Neuts Not Reportable 11/07/19 20:34 Smudge Cells Not Reportable 11/07/19 20:34 Toxic Granulation Not Reportable 11/07/19 20:34 Toxic Vacuolation Not Reportable 11/07/19 20:34 Dohle Bodies Not Reportable 11/07/19 20:34 Pelger-Huet Anomaly Not Reportable 11/07/19 20:34 Katey Rods Not Reportable 11/07/19 20:34 Platelet Estimate Consistent w auto 11/07/19 20:34 Clumped Platelets Not Reportable 11/07/19 20:34 Plt Clumps, EDTA Not Reportable 11/07/19 20:34 Large Platelets Not Reportable 11/07/19 20:34 Giant Platelets Not Reportable 11/07/19 20:34 Platelet Satelliting Not Reportable 11/07/19 20:34 Plt Morphology Comment Not Reportable 11/07/19 20:34 RBC Morphology Not Reportable 11/07/19 20:34 Dimorphic RBCs Not Reportable 11/07/19 20:34 Polychromasia Not Reportable 11/07/19 20:34 Hypochromasia Not Reportable 11/07/19 20:34 Poikilocytosis Not Reportable 11/07/19 20:34 Anisocytosis 1+ 11/07/19 20:34 Microcytosis Not Reportable 11/07/19 20:34 Macrocytosis Not Reportable 11/07/19 20:34 Spherocytes Not Reportable 11/07/19 20:34 Pappenheimer Bodies Not Reportable 11/07/19 20:34 Sickle Cells Not Reportable 11/07/19 20:34 Target Cells Rare 11/07/19 20:34 Tear Drop Cells Rare 11/07/19 20:34 Ovalocytes Not Reportable 11/07/19 20:34 Helmet Cells Not Reportable 11/07/19 20:34 [place] Bodies Not Reportable 11/07/19 20:34 [place] Rings Not Reportable 11/07/19 20:34 Maxwell Cells Not Reportable 11/07/19 20:34 Bite Cells Not Reportable 11/07/19 20:34 Crenated Cell Not Reportable 11/07/19 20:34 Elliptocytes Not Reportable 11/07/19 20:34 Acanthocytes (Spur) Not Reportable 11/07/19 20:34 Rouleaux Not Reportable 11/07/19 20:34 Hemoglobin C Crystals Not Reportable 11/07/19 20:34 Schistocytes Not Reportable 11/07/19 20:34 Malaria parasites Not Reportable 11/07/19 20:34 Bradford Bodies Not Reportable 11/07/19 20:34 Hem Pathologist Commnt No 11/07/19 20:34 Sodium 135 mmol/L (137-145) L 11/07/19 20:34 Potassium 4.4 mmol/L (3.6-5.0) 11/07/19 20:34 Chloride 103.6 mmol/L (98-107) 11/07/19 20:34 Carbon Dioxide 19 mmol/L (22-30) L 11/07/19 20:34 Anion Gap 17 mmol/L 11/07/19 20:34 BUN 30 mg/dL (9-20) H 11/07/19 20:34 Creatinine 1.3 mg/dL (0.8-1.5) 11/07/19 20:34 Estimated GFR > 60 ml/min 11/07/19 20:34 BUN/Creatinine Ratio 23 % 11/07/19 20:34 Glucose 89 mg/dL (75-100) 11/07/19 20:34 Calcium 9.0 mg/dL (8.4-10.2) 11/07/19 20:34 Blood Type A POSITIVE 11/07/19 20:41 Antibody Screen Negative 11/07/19 20:41 Crossmatch See Detail 11/07/19 20:41 Johnson/IV: Voiding Method Urinal IV Catheter Type [Right INT / Saline Lock Forearm] Active Medications - Current Medications Current Medications: Generic Name Dose Route Start Last Admin Trade Name Freq PRN Reason Stop Dose Admin Acetaminophen 650 mg 11/08/19 00:05 Tylenol [place] Q4H PRN Fever >101 Amlodipine Besylate 10 mg 11/09/19 10:00 Amlodipine PO DAILY JANE Atorvastatin Calcium 20 mg 11/08/19 22:00 Lipitor PO QHS JANE Hydralazine HCl 10 mg 11/08/19 13:14 Apresoline IV Q4HR PRN Hypertension Sodium Chloride 1,000 mls @ 75 mls/hr 11/08/19 00:15 11/08/19 02:45 Nacl 0.9% 1000 Ml IV 75 mls/hr DIRECT JANE Administration Ondansetron HCl 4 mg 11/08/19 00:05 Zofran IV Q8H PRN Nausea And Vomiting Pantoprazole Sodium 40 mg 11/08/19 02:30 11/08/19 09:57 Protonix IV 40 mg BID JANE Administration Tamsulosin HCl 0.4 mg 11/09/19 10:00 Flomax PO QDAY JANE
--- NOTE | 2019-11-08 15:13 | Gastroenterology Consultation ---
History of Present Illness - Reason for Consult Consult date: 11/08/19 Anemia - History of Present Illness This is a pleasant 84-year-old gentleman presenting with anemia He is known to our service he has undergone evaluation in 2019 for the anemia with results copied below Of note he was occult blood +July 2019 in our offices Of note, patient was just sent to the [facility] ER 3 days ago for same indication there his hemoglobin was 7.1 therefore he was discharged with re commendation for outpatient GI follow-up Patient was last seen by our group July 2019, where he was found to be occult blood positive, PillCam was recommended however it appears it was not scheduled yet Patient denies overt bleeding He is a poor historian EGD 03/2019 1. No evidence of active bleeding in the upper GI tract. 2. 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 3. Otherwise, normal upper GI tract. Colon 10/2018 Findings: 1. There was maroon colored liquid to semi-liquid stools and old blood in the left colon. 2. No focal site of active bleeding identified. 3. There were 2-3 <5 mm sessile polyps in the descending colon. These were not removed in the setting of bleeding. 4. Mild internal hemorrhoids without signs of recent bleeding stigmata. Obtained/updated/reviewed patient's current medications Past Medical History: Diagnosis Date PUD (peptic ulcer disease) 10/07/2018 Stroke (HC) Past Surgical HistoryExpand by Default Past Surgical History: Procedure Laterality Date COLONOSCOPY Left 10/14/2018 Procedure: COLONOSCOPY; Surgeon: Lawrence Cody MD; Location: [facility]; Service: Gastroenterology; Laterality: Left; Allergies:No Known Allergies Family HistoryExpand by Default No family history on file. Social HistoryExpand by Default Social History Social History Marital status: Spouse name: N/A Number of children: N/A Years of education: N/A Social History Main Topics Smoking status: Unknown If Ever Smoked Smokeless tobacco: Never Used Alcohol use Not on file Drug use: Unknown Sexual activity: Not on file Other Topics Concern Not on file Social History Narrative No narrative on file Past History Past Medical History: hypertension, stroke, other (DEMENTIA, BPH) Past Surgical History: No surgical history Social history: no significant social history Family history: no significant family history Medications and Allergies Allergies Allergy/AdvReac Type Severity Reaction Status Date / Time No Known Allergies Allergy Verified 11/18/17 22:44 Home Medications Medication Instructions Recorded Confirmed Last Taken Type Tamsulosin [Flomax] 0.4 mg PO QDAY 11/18/17 11/07/19 Unknown History Aspirin 325 mg PO DAILY #30 tablet 11/22/17 11/07/19 Unknown Rx AtorvaSTATin [Lipitor] 20 mg PO QHS #30 tab 11/22/17 11/07/19 Unknown Rx amLODIPine 10 mg PO DAILY #30 tab 11/22/17 11/07/19 Unknown Rx Active Meds: Active Medications Acetaminophen (Tylenol) 650 mg [place] Q4H PRN PRN Reason: Fever >101 Amlodipine Besylate (Amlodipine) 10 mg PO DAILY JANE Atorvastatin Calcium (Lipitor) 20 mg PO QHS JANE Hydralazine HCl (Apresoline) 10 mg IV Q4HR PRN PRN Reason: Hypertension Sodium Chloride (Nacl 0.9% 1000 Ml) 1,000 mls @ 75 mls/hr IV DIRECT JANE Last Admin: 11/08/19 02:45 Dose: 75 mls/hr Documented by: Ondansetron HCl (Zofran) 4 mg IV Q8H PRN PRN Reason: Nausea And Vomiting Pantoprazole Sodium (Protonix) 40 mg IV BID [facility] Last Admin: 11/08/19 09:57 Dose: 40 mg Documented by: Tamsulosin HCl (Flomax) 0.4 mg PO QDAY [facility] Review of Systems - Review of Systems All systems: negative (Patient poor historian unable to assess) Exam - Constitutional Vital Signs: Temp Pulse Resp BP Pulse Ox 97.0 F L 57 L 16 133/70 100 11/08/19 11:14 11/08/19 11:14 11/08/19 11:14 11/08/19 11:14 11/08/19 11:14 General appearance: no acute distress - EENT Eyes: EOM intact - Neck Neck: supple - Respiratory Respiratory effort: normal - Cardiovascular Heart Sounds: Present: S1 & S2 - Gastrointestinal General gastrointestinal: Present: soft, non-tender - Integumentary Integumentary: Present: dry - Neurologic Neurological: oriented to person - Labs CBC & Chem 7: 11/08/19 05:37 11/07/19 20:34 Lab Results: Laboratory Results - last 24 hr 11/07/19 11/07/19 11/07/19 20:34 20:34 20:41 WBC 6.1 RBC 2.29 L Hgb 6.5 L Hct 20.9 L MCV 91 MCH 29 MCHC 31 L RDW 25.5 H Plt Count 369 Add Manual Diff Complete Total Counted 100 Seg Neuts % (Manual) 76.0 H Band Neutrophils % 0 Lymphocytes % (Manual) 17.0 Reactive Lymphs % (Man) 0 Monocytes % (Manual) 5.0 Eosinophils % (Manual) 2.0 Basophils % (Manual) 0 Metamyelocytes % 0 Myelocytes % 0 Promyelocytes % 0 Blast Cells % 0 Nucleated RBC % Not Reportable Seg Neutrophils # Man 4.6 Band Neutrophils # 0.0 Lymphocytes # (Manual) 1.0 L Abs React Lymphs (Man) 0.0 Monocytes # (Manual) 0.3 Eosinophils # (Manual) 0.1 Basophils # (Manual) 0.0 Metamyelocytes # 0.0 Myelocytes # 0.0 Promyelocytes # 0.0 Blast Cells # 0.0 WBC Morphology Not Reportable Hypersegmented Neuts Not Reportable Hyposegmented Neuts Not Reportable Hypogranular Neuts Not Reportable Smudge Cells Not Reportable Toxic Granulation Not Reportable Toxic Vacuolation Not Reportable Dohle Bodies Not Reportable Pelger-Huet Anomaly Not Reportable Katey Rods Not Reportable Platelet Estimate Consistent w auto Clumped Platelets Not Reportable Plt Clumps, EDTA Not Reportable Large Platelets Not Reportable Giant Platelets Not Reportable Platelet Satelliting Not Reportable Plt Morphology Comment Not Reportable RBC Morphology Not Reportable Dimorphic RBCs Not Reportable Polychromasia Not Reportable Hypochromasia Not Reportable Poikilocytosis Not Reportable Anisocytosis 1+ Microcytosis Not Reportable Macrocytosis Not Reportable Spherocytes Not Reportable Pappenheimer Bodies Not Reportable Sickle Cells Not Reportable Target Cells Rare Tear Drop Cells Rare Ovalocytes Not Reportable Helmet Cells Not Reportable [place] Bodies Not Reportable [place] Rings Not Reportable Maxwell Cells Not Reportable Bite Cells Not Reportable Crenated Cell Not Reportable Elliptocytes Not Reportable Acanthocytes (Spur) Not Reportable Rouleaux Not Reportable Hemoglobin C Crystals Not Reportable Schistocytes Not Reportable Malaria parasites Not Reportable Bradford Bodies Not Reportable Hem Pathologist Commnt No Sodium 135 L Potassium 4.4 Chloride 103.6 Carbon Dioxide 19 L Anion Gap 17 BUN 30 H Creatinine 1.3 Estimated GFR > 60 BUN/Creatinine Ratio 23 Glucose 89 Calcium 9.0 Blood Type A POSITIVE Antibody Screen Negative Crossmatch See Detail 11/08/19 05:37 WBC RBC Hgb 7.3 L Hct 22.9 L MCV MCH MCHC RDW Plt Count Add Manual Diff Total Counted Seg Neuts % (Manual) Band Neutrophils % Lymphocytes % (Manual) Reactive Lymphs % (Man) Monocytes % (Manual) Eosinophils % (Manual) Basophils % (Manual) Metamyelocytes % Myelocytes % Promyelocytes % Blast Cells % Nucleated RBC % Seg Neutrophils # Man Band Neutrophils # Lymphocytes # (Manual) Abs React Lymphs (Man) Monocytes # (Manual) Eosinophils # (Manual) Basophils # (Manual) Metamyelocytes # Myelocytes # Promyelocytes # Blast Cells # WBC Morphology Hypersegmented Neuts Hyposegmented Neuts Hypogranular Neuts Smudge Cells Toxic Granulation Toxic Vacuolation Dohle Bodies Pelger-Huet Anomaly Katey Rods Platelet Estimate Clumped Platelets Plt Clumps, EDTA Large Platelets Giant Platelets Platelet Satelliting Plt Morphology Comment RBC Morphology Dimorphic RBCs Polychromasia Hypochromasia Poikilocytosis Anisocytosis Microcytosis Macrocytosis Spherocytes Pappenheimer Bodies Sickle Cells Target Cells Tear Drop Cells Ovalocytes Helmet Cells Hollis-[place] Bodies [place] Rings [place] Cells Bite Cells Crenated Cell Elliptocytes Acanthocytes (Spur) Rouleaux Hemoglobin C Crystals Schistocytes Malaria parasites Bradford Bodies Hem Pathologist Commnt Sodium Potassium Chloride Carbon Dioxide Anion Gap BUN Creatinine Estimated GFR BUN/Creatinine Ratio Glucose Calcium Blood Type Antibody Screen Crossmatch Assessment and Plan Patient with recent endoscopic evaluation that was negative for source on EGD and colonoscopy, therefore he needs a outpatient PillCam as he is not having overt GI bleeding. We will arrange for this. From GI standpoint as long as hemoglobin is stable and not dropping can be discharged with outpatient follow-up - Patient Problems (1) Occult blood in stools Current Visit: Yes Status: Acute (2) Anemia Current Visit: Yes Status: Acute
[2019-11-08 23:55] LABS: Hematocrit 20.2 % (35.5-45.6); Hemoglobin 6.4 gm/dl (11.8-15.2)
[2019-11-09] MEDS: SODIUM CHLORIDE 0.9% 1000 ML 1,000 ML IV SCH (06:08)
[2019-11-09] MEDS ORDERED: SODIUM CHLORIDE 0.9% 500 ML 500 ML IV NR (08:23)
[2019-11-09] MEDS: amLODIPine 10 MG TAB PO SCH (10:18)
[2019-11-09] MEDS: PANTOPRAZOLE 40 MG INJ IV SCH (10:18)
[2019-11-09] MEDS: TAMSULOSIN 0.4 MG CAP PO SCH (10:18)
--- NOTE | 2019-11-09 13:33 | Progress Note ---
Assessment and Plan --Lower GI bleeding/heme positive stool, anemia con IV fluids, IV Protonix, GI consulted Status post EGD and colonoscopy did not show any acute findings --Acute blood loss anemia; Hb 6.5[baseline 10.0 per records] Probably secondary to GI bleeding, received 1 unit of PRBC Closely monitor H&H, transfuse additional 2 units of PRBC today hb 6.4 today following 1 unit of blood transfusion yesterday --Symptomatic anemia; dizziness, lightheadedness Feeling like passing out- ? near syncope Fall precautions, physical therapy --History of hypertension; moderate control Resume home antihypertensives, PRN hydralazine --History of BPH; resume home tamsulosin --DVT prophylaxis; SCDs No pharmacologic anticoagulation in view of GI bleeding brief history: --Full CODE STATUS; Monitor closely and adjust management as needed Follow GI evaluation and recommendation Disposition; transfuse 2 units of packed RBC today. DC back to SNF tomorrow if patient and H&H are stable and cleared by PT Brief History 84-year-old care home resident was sent to emergency room with abnormal lab hemoglobin of 6.5 Possible GI bleeding/heme positive stool. Patient also complains of generalized weakness dizziness And lightheadedness. Received 1 unit of PRBC , GI consulted, s/p EGD and colonoscopy, PT requested. Hospitalist Physical General appearance: Present: mild distress, cachectic, disheveled . - EENT Eyes: Present: PERRL, EOM intact - Neck Neck: Present: supple - Respiratory Respiratory effort: normal Respiratory: bilateral: diminished, negative: rales, rhonchi, wheezing - Cardiovascular Rhythm: regular Heart Sounds: Present: S1 & S2 - Extremities Extremities: no ischemia, No edema - Abdominal General gastrointestinal: soft, non-tender, non-distended, normal bowel sounds - Integumentary Integumentary: Present: clear, warm - Psychiatric Psychiatric: other (Confused at times) - Neurologic Neurologic: moves all extremities Subjective Date of service: 11/09/19 Interval history: Patient seen and examined. Medical records and medication list reviewed. No acute event overnight noted by the RN. Patient denies any chest pain or difficulty breathing. Patient is tolerating diet. Discussed plan of care at bedside with patient. Objective - Constitutional Vitals: Vital Signs - 12hr 11/09/19 11/09/19 11/09/19 04:16 07:17 11:00 Temperature 98.0 F 98.3 F Pulse Rate 64 67 64 Respiratory 16 18 Rate Blood Pressure 120/56 115/52 O2 Sat by Pulse 100 100 Oximetry 11/09/19 11:19 Temperature 97.0 F L Pulse Rate 63 Respiratory 16 Rate Blood Pressure 104/40 O2 Sat by Pulse 100 Oximetry - Labs CBC & Chem 7: 11/08/19 23:15 11/07/19 20:34 Labs: Abnormal lab results 11/07/19 11/08/19 Range/Units 20:41 23:15 Hgb 6.4 L (11.8-15.2) gm/dl Hct 20.2 L (35.5-45.6) % Crossmatch See Detail
--- NOTE | 2019-11-09 15:56 | Gastroenterology Progress Note ---
Assessment and Plan Patient with recent endoscopic evaluation that was negative for source on EGD and colonoscopy, therefore he needs a outpatient PillCam as he is not having overt GI bleeding. We will arrange for this. From GI standpoint as long as posttransfusion hemoglobin is 8 or above he may be discharged with outpatient follow-up - Patient Problems (1) Occult blood in stools Current Visit: Yes Status: Acute (2) Anemia Current Visit: Yes Status: Acute Subjective Date of service: 11/09/19 Principal diagnosis: anemia Interval history: No overt bleeding, patient's hemoglobin not up appropriately with the tr ansfusion therefore receiving 2 units PRBC prior to discharge Objective - Constitutional Vitals: Temp Pulse Resp BP Pulse Ox 98.3 F 58 L 18 113/44 100 11/09/19 15:02 11/09/19 15:02 11/09/19 15:02 11/09/19 15:02 11/09/19 11:19 General appearance: no acute distress - Gastrointestinal General gastrointestinal: Present: soft, non-tender - Labs CBC & Chem 7: 11/08/19 23:15 11/07/19 20:34 Labs: Laboratory Results - last 24 hr 11/07/19 11/08/19 20:41 23:15 Hgb 6.4 L Hct 20.2 L Blood Type A POSITIVE Antibody Screen Negative Crossmatch See Detail
[2019-11-09] MEDS: PANTOPRAZOLE 40 MG TAB PO SCH (21:41)
[2019-11-10] MEDS: SODIUM CHLORIDE 0.9% 1000 ML 1,000 ML IV SCH ×2 (02:45→16:26)
[2019-11-10 04:01] LABS: Basophils # (Auto) 0.1 K/mm3 (0.0-0.1); Basophils % (Auto) 0.9 % (0.0-1.8); Eosinophils # (Auto) 0.3 K/mm3 (0.0-0.4); Eosinophils % (Auto) 3.3 % (0.0-4.3); Hemoglobin 8.8 gm/dl (11.8-15.2); Lymphocytes # (Auto) 1.4 K/mm3 (1.2-5.4); Lymphocytes % (Auto) 16.3 % (13.4-35.0); Mean Corpuscular HGB Conc 33 % (32-34); Mean Corpuscular Volume 89 fl (84-94); Monocytes # (Auto) 0.8 K/mm3 (0.0-0.8); Monocytes % (Auto) 9.3 % (0.0-7.3); Platelet Count 312 K/mm3 (140-440); Red Blood Count 3.05 M/mm3 (3.65-5.03)
[2019-11-10 04:04] LABS: Red Cell Distribution Width 22.1 % (13.2-15.2)
[2019-11-10] MEDS: amLODIPine 10 MG TAB PO SCH (09:40)
[2019-11-10] MEDS: PANTOPRAZOLE 40 MG TAB PO SCH ×2 (09:40→21:27)
[2019-11-10] MEDS: TAMSULOSIN 0.4 MG CAP PO SCH (09:40)
--- NOTE | 2019-11-10 11:21 | Discharge Summary ---
Providers - Providers Date of Admission: 11/07/19 22:28 Date of discharge: 11/14/19 Attending physician: LA VALIENTE 11/08/19 06:00 Consult to Physician [CONS] Routine Comment: Consulting Provider: MARLEY SERRATO Physician Instructions: Reason For Exam: G.I BLEED 11/08/19 19:42 Physical Therapy Evaluation and Treat [CONS] Routine Comment: Reason For Exam: Unsteady gait/dizziness /near syncope Primary care physician: [employer] [employer] Hospitalization Condition: Stable Procedures: EGD 03/2019 1. No evidence of active bleeding in the upper GI tract. 2. 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 3. Otherwise, normal upper GI tract. Colonoscopy 10/2018 Findings: 1. There was maroon colored liquid to semi-liquid stools and old blood in the left colon. 2. No focal site of active bleeding identified. 3. There were 2-3 <5 mm sessile polyps in the descending colon. These were not removed in the setting of bleeding. 4. Mild internal hemorrhoids without signs of recent bleeding stigmata. Hospital course: 84-year-old male who was noted to have abnormal outpatient lab test that showed a low hemoglobin of 6 and because of that patient was sent over to the emergency room where he was evaluated and found to have guaiac positive stool. He was transfused 1 unit of packed RBC, GI was consulted and GI recommended medical management with blood transfusion to keep hemoglobin greater than 8. Per GI he was recently evaluated with EGD and colonoscopy which did not show any acute process and did not show any active bleeding. Next day his hemoglobin remained at 6.5 after being transfused with 1 unit of packed RBC. He transfused additional unit of packed RBC and Hb improved to 8.8. Patient was then refused by SNF till he gets tested for COVID and has a negative test. COVID was ordered and he became positive. CXR showed possible early b/l PNA, placed on zithromax, ID consulted. Patient is otherwise asymptomatic. 11/08: Resume patient care, hemoglobin 6.5. transfuse 2 units of packed RBC today. DC back to SNF tomorrow if patient and H&H are stable 11/09: patient was planned for discharge today but refused by detention. He will need negative COVID-19 test -ordered 11/10: patient was planned for discharge but COVID-19 test came positive 11/11: Continue to follow inflammatory markers, per centimeters patient cannot go back to detention until COVID-19 is negative 11/12: Clinically remains asymptomatic per COVID-19 pneumonia. Spiked fever 102F. Patient can go back to detention with isolation if remains afebrile 11/13: Remains afebrile, stable inflammatory markers. Patient will be discharged back to detention with appropriate isolation. Discharge diagnosis and management: --Positive COVID 19 I believe he might be positive on admission and he was asymptomatic respiratory stand point stable inflammatory markers, + b/l PNA on CXR, ID consulted --Lower GI bleeding/heme positive stool, anemia Status post Recent EGD and colonoscopy during prior admission which did not show any acute findings GI was consulted and recommended patient will need outpatient capsule endoscopy, continue PPI therapy for now --Acute blood loss anemia; Hb 6.5[baseline 10.0 per records] Probably secondary to GI bleeding, received total 2 units of packed RBC Hemoglobin on discharge was 8.8 --Symptomatic anemia; dizziness, lightheadedness Feeling like passing out- ? near syncope Likely due to GI bleed and dehydration Continue fall precautions, physical therapy --History of hypertension; moderate control Resumed home antihypertensives, PRN hydralazine --History of BPH; resumed home tamsulosin --History of dementia, continue supportive therapy --Malnutrition, moderate, POA Recommended nutritional supplements --DVT prophylaxis; SCDs No pharmacologic anticoagulation in view of GI bleeding brief history: Physical exam: General appearance: Present: mild distress, cachectic, disheveled . - EENT Eyes: Present: PERRL, EOM intact - Neck Neck: Present: supple - Respiratory Respiratory effort: normal Respiratory: bilateral: diminished, negative: rales, rhonchi, wheezing - Cardiovascular Rhythm: regular Heart Sounds: Present: S1 & S2 - Extremities Extremities: no ischemia, No edema - Abdominal General gastrointestinal: soft, non-tender, non-distended, normal bowel sounds - Integumentary Integumentary: Present: clear, warm - Psychiatric Psychiatric: other (Confused at times) - Neurologic Neurologic: moves all extremities [facility] Time spent for discharge: 34 minutes Core Measure Documentation - Palliative Care Palliative Care/ Comfort Measures: Not Applicable - Core Measures Any of the following diagnoses?: history only Exam - Constitutional Vitals: Temp Pulse Resp BP Pulse Ox 98.4 F 93 H 16 123/66 99 11/10/19 07:41 11/10/19 09:40 11/10/19 09:00 11/10/19 09:40 11/10/19 09:00 Plan Activity: fall precautions Weight Bearing Status: Non-Weight Bearing Diet: advance as tolerated Additional Instructions: Upon discharge patient should remain in droplet and contact precaution for 14 days from the test was positive. Patients should return to hospital regardless if they have worsening fevers or respiratory status. Please avoid NSAIDs. Follow up with: PRIMARY CARE, [Primary Care Provider] - 7 Days Prescriptions: Pantoprazole [Protonix] 40 mg PO QDAY #30 tablet
--- NOTE | 2019-11-10 15:51 | Event Note ---
Date: 11/10/19 SNF refused to accept the patient w/o negative COVID 19. test has ordered today.
[2019-11-11] MEDS: amLODIPine 10 MG TAB PO SCH (10:00)
[2019-11-11] MEDS: PANTOPRAZOLE 40 MG TAB PO SCH ×2 (10:00→21:42)
[2019-11-11] MEDS: TAMSULOSIN 0.4 MG CAP PO SCH (10:00)
--- NOTE | 2019-11-11 12:07 | Progress Note ---
Assessment and Plan --Lower GI bleeding/heme positive stool, anemia Status post Recent EGD and colonoscopy during prior admission which did not show any acute findings GI was consulted and recommended patient will need outpatient capsule endoscopy, continue PPI therapy for now --Acute blood loss anemia; Hb 6.5[baseline 10.0 per records] Probably secondary to GI bleeding, received total 2 units of packed RBC Hemoglobin today 8.8 --Symptomatic anemia; dizziness, lightheadedness Feeling like passing out- ? near syncope Likely due to GI bleed and dehydration Continue fall precautions, physical therapy --History of hypertension; moderate control Resumed home antihypertensives, PRN hydralazine --History of BPH; resumed home tamsulosin --History of dementia, continue supportive therapy --Malnutrition, moderate, POA Recommended nutritional supplements --DVT prophylaxis; SCDs No pharmacologic anticoagulation in view of GI bleeding brief history: Disposition; patient was planned for discharge today but refused by longterm. He will need negative COVID-19 test -ordered Brief History 84-year-old longterm resident was sent to emergency room with abnormal lab hemoglobin of 6.5 Possible GI bleeding/heme positive stool. Patient also complains of generalized weakness dizziness And lightheadedness. Received 1 unit of PRBC , GI consulted, s/p EGD and colonoscopy, PT requested. Hospitalist Physical General appearance: Present: mild distress, cachectic, disheveled . - EENT Eyes: Present: PERRL, EOM intact - Neck Neck: Present: supple - Respiratory Respiratory effort: normal Respiratory: bilateral: diminished, negative: rales, rhonchi, wheezing - Cardiovascular Rhythm: regular Heart Sounds: Present: S1 & S2 - Extremities Extremities: no ischemia, No edema - Abdominal General gastrointestinal: soft, non-tender, non-distended, normal bowel sounds - Integumentary Integumentary: Present: clear, warm - Psychiatric Psychiatric: other (Confused at times) - Neurologic Neurologic: moves all extremities Subjective Date of service: 11/10/19 Principal diagnosis: anemia Interval history: Patient seen and examined. Medical records and medication list reviewed. No acute event overnight noted by the RN. Patient denies any chest pain or difficulty breathing. Patient is tolerating diet. Discussed plan of care at bedside with patient. Patient was planned for discharge today but longterm denied to accept him till COVID-19 test is negative Objective - Constitutional Vitals: Vital Signs - 12hr 05/03/20 05/03/20 05/03/20 04:36 07:47 08:12 Temperature 98.6 F 98.8 F Pulse Rate 73 77 Pulse Rate [ 89 From Monitor] Pulse Rate [ 89 Left Radial] Pulse Rate [ 89 Right Radial] Respiratory 14 18 Rate Blood Pressure 127/60 126/47 O2 Sat by Pulse 100 100 100 Oximetry 11/11/19 10:00 Temperature Pulse Rate 76 Pulse Rate [ From Monitor] Pulse Rate [ Left Radial] Pulse Rate [ Right Radial] Respiratory Rate Blood Pressure 122/56 O2 Sat by Pulse Oximetry - Labs CBC & Chem 7: 11/10/19 03:46 11/07/19 20:34
--- NOTE | 2019-11-11 14:01 | Progress Note ---
Assessment and Plan --Positive COVID 19 I believe he might be positive on admission and he was asymptomatic will cont to monitor, consult ID for further recommendation, order inflammatory markers --Lower GI bleeding/heme positive stool, anemia Status post Recent EGD and colonoscopy during prior admission which did not show any acute findings GI was consulted and recommended patient will need outpatient capsule endoscopy, continue PPI therapy for now --Acute blood loss anemia; Hb 6.5[baseline 10.0 per records] Probably secondary to GI bleeding, received total 2 units of packed RBC Hemoglobin today 8.8 --Symptomatic anemia; dizziness, lightheadedness Feeling like passing out- ? near syncope Likely due to GI bleed and dehydration s/p transfusion, Continue fall precautions, physical therapy --History of hypertension; moderate control Resumed home antihypertensives, PRN hydralazine --History of BPH; resumed home tamsulosin --History of dementia, continue supportive therapy --Malnutrition, moderate, POA Recommended nutritional supplements --DVT prophylaxis; SCDs No pharmacologic anticoagulation in view of GI bleeding brief history: Disposition; patient was planned for discharge but COVID-19 test came positive Brief History 84-year-old longterm resident was sent to emergency room with abnormal lab hemoglobin of 6.5. Possible GI bleeding/heme positive stool. Patient also complains of generalized weakness dizziness And lightheadedness. Received 2 units of PRBC , GI consulted and recommended outpt capsule endoscopy. patient was planned for d/c but screening COVID19 test is positive. Consult ID. Hospitalist Physical General appearance: Present: mild distress, cachectic, disheveled . - EENT Eyes: Present: PERRL, EOM intact - Neck Neck: Present: supple - Respiratory Respiratory effort: normal Respiratory: bilateral: diminished, negative: rales, rhonchi, wheezing - Cardiovascular Rhythm: regular Heart Sounds: Present: S1 & S2 - Extremities Extremities: no ischemia, No edema - Abdominal General gastrointestinal: soft, non-tender, non-distended, normal bowel sounds - Integumentary Integumentary: Present: clear, warm - Psychiatric Psychiatric: other (Confused at times) - Neurologic Neurologic: moves all extremities Subjective Date of service: 11/11/19 Principal diagnosis: anemia Interval history: Patient seen and examined. Medical records and medication list reviewed. No acute event overnight noted by the RN. Patient denies any chest pain or difficulty breathing. Patient is tolerating diet. COVID-19 test is positive Objective - Constitutional Vitals: Vital Signs - 12hr 11/11/19 11/11/19 11/11/19 04:36 07:47 08:12 Temperature 98.6 F 98.8 F Pulse Rate 73 77 Pulse Rate [ 89 From Monitor] Pulse Rate [ 89 Left Radial] Pulse Rate [ 89 Right Radial] Respiratory 14 18 Rate Blood Pressure 127/60 126/47 O2 Sat by Pulse 100 100 100 Oximetry 11/11/19 11/11/19 10:00 12:22 Temperature 98.5 F Pulse Rate 73 69 Pulse Rate [ From Monitor] Pulse Rate [ Left Radial] Pulse Rate [ Right Radial] Respiratory 18 Rate Blood Pressure 122/56 118/44 O2 Sat by Pulse 100 Oximetry - Labs CBC & Chem 7: 11/10/19 03:46 11/11/19 14:48 Labs: Abnormal lab results 11/10/19 Range/Units 10:33 Coronavirus (PCR) Positive A (Negative)
--- NOTE | 2019-11-11 15:19 | XRay Report ---
CHEST 1 VIEW INDICATION / CLINICAL INFORMATION: Dyspnea COMPARISON: None available. FINDINGS: SUPPORT DEVICES: None. HEART / MEDIASTINUM: No significant abnormality. LUNGS / PLEURA: Ill-defined airspace densities project throughout much of the mid and lower lungs beni aterally concerning for multifocal pneumonia Signer Name: Esdras Sanz MD Signed: 11/11/2019 3:15 PM Workstation Name: [id number]
[2019-11-11] MEDS: SODIUM CHLORIDE 0.9% 1000 ML 1,000 ML IV SCH (15:44)
[2019-11-11 16:02] LABS: C-Reactive Protein 7.5 mg/dL (0.00-1.30)
[2019-11-12] MEDS: PANTOPRAZOLE 40 MG TAB PO SCH ×2 (10:00→21:51)
[2019-11-12] MEDS ORDERED: AZITHROMYCIN 500 MG in SODIUM CHLORIDE 0.9% 250ML 250 ML IV SCH (10:00)
[2019-11-12] MEDS: TAMSULOSIN 0.4 MG CAP PO SCH (10:00)
[2019-11-12] MEDS: amLODIPine 10 MG TAB PO SCH (10:00)
--- NOTE | 2019-11-12 13:58 | Progress Note ---
Assessment and Plan --Positive COVID 19 I believe he might be positive on admission and he was asymptomatic Chest x-ray suggestive of possible bilateral infiltrates: sign for early pneumonia will cont to monitor, consult ID for further recommendation, follow inflammatory markers --Lower GI bleeding/heme positive stool, anemia Status post Recent EGD and colonoscopy during prior admission which did not show any acute findings GI was consulted and recommended patient will need outpatient capsule endoscopy, continue PPI therapy for now --Acute blood loss anemia; Hb 6.5[baseline 10.0 per records] Probably secondary to GI bleeding, received total 2 units of packed RBC Hemoglobin now stable --Symptomatic anemia; dizziness, lightheadedness Feeling like passing out- ? near syncope Likely due to GI bleed and dehydration s/p transfusion, Continue fall precautions, physical therapy --History of hypertension; moderate control Resumed home antihypertensives, PRN hydralazine --History of BPH; resumed home tamsulosin --History of dementia, continue supportive therapy --Malnutrition, moderate, POA Recommended nutritional supplements --DVT prophylaxis; SCDs No pharmacologic anticoagulation in view of GI bleeding brief history: 11/08: Resume patient care, hemoglobin 6.5. transfuse 2 units of packed RBC today. DC back to SNF tomorrow if patient and H&H are stable 11/09: patient was planned for discharge today but refused by [facility]. He will need negative COVID-19 test -ordered 11/10: patient was planned for discharge but COVID-19 test came positive 11/11: Continue to follow inflammatory markers, per centimeters patient cannot go back to [facility] until COVID-19 is negative Brief History 84-year-old [facility] resident was sent to emergency room with abnormal lab hemoglobin of 6.5. Possible GI bleeding/heme positive stool. Patient also complains of generalized weakness dizziness And lightheadedness. Received 2 units of PRBC , GI consulted and recommended outpt capsule endoscopy. patient was planned for d/c but screening COVID19 test is positive. Consult ID. Hospitalist Physical Limited physical exam due to COVID 19 pandemic and limited PPE Constitutional: alert in NAD, resting on bed without any distress, able to follow commands and answers question Neck: limited due to lack of PPE Oral:limited due to lack of PPE Cardiovascular: limited due to lack of PPE Respiratory: beni rhonchi per NS GI: limited due to lack of PPE Musculoskeletal: limited due to lack of PPE Skin: No rash or abscess Hem/Lymphatic: limited due to lack of PPE Psych: no agitated Neurological: no agitated Subjective Date of service: 11/12/19 Principal diagnosis: anemia Interval history: Patient seen and examined. Medical records and medication list reviewed. No acute event overnight reported by the RN. Patient denies any chest pain or difficulty breathing. Patient is tolerating di et. Discharge is pending because he is COVID-19 positive and [facility] will not accept him until a negative test Patient denies any acute issues, clinically stable Objective - Constitutional Vitals: Vital Signs - 12hr 11/12/19 05:16 Temperature 99.2 F Pulse Rate 66 Respiratory 18 Rate Blood Pressure 134/52 O2 Sat by Pulse 100 Oximetry - Labs CBC & Chem 7: 11/10/19 03:46 11/11/19 14:48 Labs: Abnormal lab results 11/11/19 11/11/19 Range/Units 14:48 14:48 D-Dimer 1022.88 H (0-234) ng/mlDDU C-Reactive Protein 7.50 H (0.00-1.30) mg/dL
--- NOTE | 2019-11-12 14:40 | Consultation ---
History of Present Illness - Reason for Consult Consult date: 11/12/19 - History of Present Illness 84-year-old male past medical history hypertension, CVA admitted to the hospital with anemia. He was noted as an outpatient to have a hemoglobin of less than 6. He was asymptomatic at time of admission. Patient was asymptomatic as an inpatient as well, however his care home refused his discharge as he needed a negative COVID-19 test. A surveillance test was positive here. Afebrile since admission with a normal white count. Currently receiving ceftriaxone and azithromycin. No cultures available for review Imaging personally reviewed: Chest x-ray: Multifocal pneumonia Review of Systems: Bold if positive, otherwise negative General: fevers, chills, rigors HEENT: visual disturbance, diplopia, eye pain Respiratory: cough, sputum, hemoptysis, shortness of breath Cardiovascular: chest pain, syncope Gastrointestinal: nausea, vomiting, diarrhea, abdominal pain Genitourinary: dysuria, hematuria, flank pain Musculoskeletal: neck pain, back pain, joint pain, edema Neurologic: headaches, seizures Hematologic: easy bruising or bleeding Endocrine: night sweats, acute weight loss Skin: rash, jaundice, redness Psychiatric: suicidal, homicidal ideation Past History Past Medical History: hypertension, stroke, other (DEMENTIA, BPH) Past Surgical History: No surgical history Social history: no significant social history Family history: no significant family history Medications and Allergies Allergies Allergy/AdvReac Type Severity Reaction Status Date / Time No Known Allergies Allergy Verified 11/18/17 22:44 Home Medications Medication Instructions Recorded Confirmed Last Taken Type Tamsulosin [Flomax] 0.4 mg PO QDAY 11/18/17 11/07/19 Unknown History AtorvaSTATin [Lipitor] 20 mg PO QHS #30 tab 11/22/17 11/07/19 Unknown Rx amLODIPine 10 mg PO DAILY #30 tab 11/22/17 11/07/19 Unknown Rx Pantoprazole [Protonix] 40 mg PO QDAY #30 tablet 11/10/19 Unknown Rx Active Meds: Active Medications Acetaminophen (Tylenol) 650 mg IN Q4H PRN PRN Reason: Fever >101 Amlodipine Besylate (Amlodipine) 10 mg PO DAILY [facility] Last Admin: 11/12/19 10:00 Dose: 10 mg Documented by: Atorvastatin Calcium (Lipitor) 20 mg PO QHS [facility] Last Admin: 05/03/20 21:42 Dose: 20 mg Documented by: Hydralazine HCl (Apresoline) 10 mg IV Q4HR PRN PRN Reason: Hypertension Azithromycin 500 mg/ Sodium (Chloride) 250 mls @ 250 mls/hr IV Q24HR [facility]; Protocol Last Admin: 11/12/19 10:00 Dose: 250 mls/hr Documented by: Ondansetron HCl (Zofran) 4 mg IV Q8H PRN PRN Reason: Nausea And Vomiting Last Admin: 11/08/19 21:34 Dose: 4 mg Documented by: Pantoprazole Sodium (Protonix) 40 mg PO BID [facility] Last Admin: 11/12/19 10:00 Dose: 40 mg Documented by: Tamsulosin HCl (Flomax) 0.4 mg PO QDAY [facility] Last Admin: 11/12/19 10:00 Dose: 0.4 mg Documented by: Physical Examination - Physical Exam Narrative exam: Physical exam deferred due to PPE conservation strategy. - Constitutional Vitals: Vital Signs Temp Pulse Resp BP Pulse Ox 99.2 F 66 18 134/52 100 11/12/19 05:16 11/12/19 05:16 11/12/19 05:16 11/12/19 05:16 11/12/19 05:16 Temperature -Last 24 Hours Temperature 99.2 F Temperature 98.1 F Temperature 98.6 F Results - Labs CBC & Chem 7: 11/10/19 03:46 11/11/19 14:48 Labs: Abnormal lab results 11/11/19 11/11/19 Range/Units 14:48 14:48 D-Dimer 1022.88 H (0-234) ng/mlDDU C-Reactive Protein 7.50 H (0.00-1.30) mg/dL Assessment and Plan Cultures: None A/P: 84-year-old man past medical history hypertension, CVA admitted to the hospital with anemia, and found to be COVID-19 positive on routine screening for hospital discharge to care home. #COVID-19: Chest x-ray with multifocal pneumonia however patient seems to be mostly asymptomatic. Not currently on oxygen, normal inflammatory markers at this time. Continue supportive care, would stop empiric antibiotics given normal procalcitonin. Unfortunately the care home will likely need a negative COVID-19 test, and that may take some time to obtain. #Anemia: Resolved Recs: -Continue supportive care for COVID-19 -Follow-up COVID-19 labs to include LDH, ferritin, d-dimer, CRP every 48 hours to monitor for disease progression -Stop empiric antibiotics given normal procalcitonin -Unfortunately may take some time to get a negative testing at care home is requiring. Thank you for the consult, we will continue to follow. Carmen Montoya MD [facility] M: [phone] O: [phone] F: [phone]
--- NOTE | 2019-11-13 09:11 | Progress Note ---
Assessment and Plan --Positive COVID 19 I believe he might be positive on admission and he was asymptomatic Chest x-ray suggestive of possible bilateral infiltrates: sign for early pneumonia consulted ID for further recommendation and recommended no empiric antibiotics, Continue to follow inflammatory markers --Lower GI bleeding/heme positive stool, anemia Status post Recent EGD and colonoscopy during prior admission which did not show any acute findings GI was consulted and recommended patient will need outpatient capsule endoscopy, continue PPI therapy for now --Acute blood loss anemia; Hb 6.5[baseline 10.0 per records] Probably secondary to GI bleeding, received total 2 units of packed RBC Hemoglobin now stable --Symptomatic anemia; dizziness, lightheadedness Feeling like passing out- ? near syncope Likely due to GI bleed and dehydration s/p transfusion, Continue fall precautions, physical therapy --History of hypertension; moderate control Resumed home antihypertensives, PRN hydralazine --History of BPH; resumed home tamsulosin --History of dementia, continue supportive therapy --Malnutrition, moderate, POA Recommended nutritional supplements --DVT prophylaxis; SCDs No pharmacologic anticoagulation in view of GI bleeding brief history: 11/08: Resume patient care, hemoglobin 6.5. transfuse 2 units of packed RBC today. DC back to SNF tomorrow if patient and H&H are stable 11/09: patient was planned for discharge today but refused by assisted. He will need negative COVID-19 test -ordered 11/10: patient was planned for discharge but COVID-19 test came positive 11/11: Continue to follow inflammatory markers, per centimeters patient cannot go back to assisted until COVID-19 is negative 11/12: Clinically remains asymptomatic per COVID-19 pneumonia. Spiked fever 102F. Patient can go back to assisted with isolation if remains afebrile Brief History 84-year-old assisted resident was sent to emergency room with abnormal lab hemoglobin of 6.5. Possible GI bleeding/heme positive stool. Patient also complains of generalized weakness dizziness And lightheadedness. Received 2 units of PRBC , GI consulted and recommended outpt capsule endoscopy. patient was planned for d/c but screening COVID19 test is positive. Consulted ID, no empiric antibiotic needed as patient has asymptomatic and clinically stable. Unable to discharge back to assisted till COVID-19 test is negative. Hospitalist Physical Limited physical exam due to COVID 19 pandemic and limited PPE Constitutional: alert in NAD, resting on bed without any distress, able to fo llow commands and answers question Neck: limited due to lack of PPE Oral:limited due to lack of PPE Cardiovascular: limited due to lack of PPE Respiratory: beni rhonchi per NS GI: limited due to lack of PPE Musculoskeletal: limited due to lack of PPE Skin: No rash or abscess Hem/Lymphatic: limited due to lack of PPE Psych: no agitated Neurological: no agitated Subjective Date of service: 11/13/19 Principal diagnosis: anemia Interval history: Patient seen and examined. Medical records and medication list reviewed. No acute event overnight reported by the RN. Patient denies any chest pain or difficulty breathing. Patient is tolerating diet. Discharge is pending because he is COVID-19 positive and he spiked fever of 102 this morning Patient denies any acute issues, clinically stable Objective - Constitutional Vitals: Vital Signs - 12hr 11/12/19 11/13/19 22:14 05:31 Temperature 98.2 F 97.7 F Pulse Rate 68 72 Respiratory 20 20 Rate Blood Pressure 116/50 144/59 O2 Sat by Pulse 99 98 Oximetry - Labs CBC & Chem 7: 11/10/19 03:46 11/11/19 14:48
[2019-11-13] MEDS: amLODIPine 10 MG TAB PO SCH (09:31)
[2019-11-13] MEDS: PANTOPRAZOLE 40 MG TAB PO SCH ×2 (09:31→22:02)
[2019-11-13] MEDS: TAMSULOSIN 0.4 MG CAP PO SCH (09:31)
[2019-11-13] MEDS ORDERED: ACETAMINOPHEN 325 MG TAB PO PRN (12:00)
--- NOTE | 2019-11-13 13:26 | Progress Note ---
Assessment and Plan Cultures: None A/P: 84-year-old man past medical history hypertension, CVA admitted to the hospital with anemia, and found to be COVID-19 positive on routine screening for hospital discharge to half-way. #COVID-19: Chest x-ray with multifocal pneumonia however patient seems to be mostly asymptomatic. Not currently on oxygen, normal inflammatory markers at this time. Continue supportive care, would stop empiric antibiotics given normal procalcitonin. Unfortunately the half-way will likely need a negative COVID-19 test, and that may take some time to obtain. #Anemia: Resolved Recs: -Continue supportive care for COVID-19 -Follow-up COVID-19 labs to include LDH, ferritin, d-dimer, CRP every 48 hours to monitor for disease progression. Re-ordered lab series. -Stop empiric antibiotics given normal procalcitonin -Unfortunately may take some time to get a negative testing at half-way is requiring. Thank you for the consult, we will continue to follow. Carmen Montoya MD [facility] ([facility]) M: [phone] O: [phone] F: [phone] Subjective Date of service: 11/13/19 Principal diagnosis: anemia Interval history: Febrile now 102 degrees. Continues to sat well. Objective - Exam Narrative Exam: Physical exam deferred due to PPE conservation strategy. - Constitutional Vitals: Vital Signs Temp Pulse Resp BP Pulse Ox 102.0 F H 85 18 156/61 98 11/13/19 11:21 11/13/19 11:21 11/13/19 11:21 11/13/19 11:21 11/13/19 11:21 Temperature -Last 24 Hours Temperature 102.0 F Temperature 97.7 F Temperature 98.2 F Temperature 99.2 F - Labs CBC & Chem 7: 11/10/19 03:46 11/11/19 14:48
[2019-11-13 14:47] LABS: C-Reactive Protein 10.3 mg/dL (0.00-1.30)
[2019-11-14] MEDS: amLODIPine 10 MG TAB PO SCH (10:02)
[2019-11-14] MEDS: PANTOPRAZOLE 40 MG TAB PO SCH (10:03)
[2019-11-14] MEDS: TAMSULOSIN 0.4 MG CAP PO SCH (10:03)
[2019-11-14 11:29] VITALS: BP 125/55
--- NOTE | 2019-11-14 14:49 | Progress Note ---
Assessment and Plan Cultures: None A/P: 84-year-old man past medical history hypertension, CVA admitted to the hospital with anemia, and found to be COVID-19 positive on routine screening for hospital discharge to [facility]. #COVID-19: Chest x-ray with multifocal pneumonia however patient seems to be mostly asymptomatic. Not currently on oxygen, normal inflammatory markers at this time. Continue supportive care, would stop empiric antibiotics given normal procalcitonin. Unfortunately the [facility] will likely need a negative COVID-19 test, and that may take some time to obtain. #Anemia: Resolved Recs: -Continue supportive care for COVID-19 -Follow-up COVID-19 labs to include LDH, ferritin, d-dimer, CRP every 48 hours to monitor for disease progression. Re-ordered lab series. -Okay for discharge from ID perspective. No infectious disease follow-up required. Thank you for the consult, we will continue to follow. Carmen Montoya MD [facility] ([facility]) M: [phone] O: [phone] F: [phone] Subjective Date of service: 11/14/19 Principal diagnosis: anemia Interval history: Afebrile with no acute issues. Objective - Exam Narrative Exam: Physical exam deferred due to PPE conservation strategy. - Constitutional Vitals: Vital Signs Temp Pulse Resp BP Pulse Ox 98.0 F 74 18 125/55 100 11/14/19 11:01 11/14/19 11:01 11/14/19 11:01 11/14/19 11:01 11/14/19 11:01 Temperature -Last 24 Hours Temperature 98.0 F Temperature 98.3 F Temperature 98.5 F Temperature 98.6 F Temperature 99.3 F - Labs CBC & Chem 7: 11/10/19 03:46 11/11/19 14:48
== END 2019-11-14 15:27 | DRG 377 ==
LOC: ED 18:41 → 2B-ACE 22:28 → 4A 11-08 00:13 → 3A 11-11 15:31 → OBSVTOIN 11-12 08:28
PROVIDERS: ADMIT Internal Medicine; ATTEND Internal Medicine
PROC: 30233N1 Transfusion of Nonautologous Red Blood Cells into Peripheral Vein, Percutaneous Approach (ICD-10-PCS; principal; 2019-11-12)
DX: K92.2 Gastrointestinal hemorrhage, unspecified (principal); U07.1 COVID-19; J12.89 Other viral pneumonia; D62 Acute posthemorrhagic anemia; E44.0 Moderate protein-calorie malnutrition; Z68.21 Body mass index [BMI] 21.0-21.9, adult; I10 Essential (primary) hypertension; F03.90 Unspecified dementia, unspecified severity, without behavioral disturbance, psychotic disturbance, mood disturbance, and anxiety; N40.0 Benign prostatic hyperplasia without lower urinary tract symptoms; R19.5 Other fecal abnormalities; Z86.73 Personal history of transient ischemic attack (TIA), and cerebral infarction without residual deficits; Z79.82 Long term (current) use of aspirin
CPT/HCPCS: 36415; 71045; 80048; 82728; 82947; 83615; 84145; 85007; 85014; 85018; 85025; 85379; 86140; 86850; 86900; 86901; 86920; G0378; A9270-GY; C9113; J0456; J2405; J7030; J7040; J7050; P9016; U0003